=== PATIENT | male | born 1965 | race Caucasian/White ===

== ENCOUNTER 2023-11-25 16:04 | Emergency (ER) | payer MEDICAID, SELFPAY ==
[2023-11-25 16:10] VITALS: BP 206/92; PULSE 79; TEMP 36.7; O2SAT 98; BMI 33.4
[2023-11-25 16:26] VITALS: BP 194/78
--- NOTE | 2023-11-25 16:35 | CT_ITS ---
The [address] [address] Patient Name: JEFF MERRITT MRN: [id number] date: 1965 Sex: M Assigned Patient Location: ER Current Patient Location: ER Accession/Order Number: [id number] Exam Date: 11/25/2023 16:50 Report Date: 11/25/2023 18:46 At the request of: CHICA MONTAÑO Procedure: CT lumbar spine wo con EXAMINATION: CT lumbar spine wo con, , 11/25/2023 4:50 PM EDT INDICATION: Left sided sciatica HISTORY: Ordering Provider Reason for Exam: Left sided sciatica Technologist Note: Additional: COMPARISON: None. TECHNIQUE: CT of the lumbar was performed without IV contrast. CT dose reduction technique was used, including Automated Exposure Control. IV CONTRAST: FINDINGS: There is normal lumbar lordosis. No subluxation. Vertebral body heights are maintained. No fracture is seen. Mild loss of intervertebral disc height is seen at the L3-L4 level. T12-L1: No significant disc bulge or disc protrusion is seen at this level. Central canal and bilateral neural foramina are patent at this level. L1-L2: No significant disc bulge or disc protrusion is seen at this level. Central canal and bilateral neural foramina are patent at this level. L2-L3: No significant disc bulge or disc protrusion is seen at this level. Central canal and bilateral neural foramina are patent at this level. L3-L4: 4-5 mm diffuse disc bulge is noted at this level with mild central canal stenosis. Mild bilateral neural foraminal narrowing is also seen at this level. L4-L5: 4 mm posterior disc bulge is seen with mild central canal stenosis. Moderate to severe left neural foraminal narrowing is also seen at this level. L5-S1: 3-4 mm posterior disc bulge is seen at this level without significant central canal stenosis. CT/CT lumbar spine wo con IMPRESSION: Mild central canal stenosis is seen at the L3-L4 and L4-L5 levels. Moderate to severe left neural foraminal narrowing is also seen at the L4-L5 level. Electronically authenticated by: SANDRA MARCOS Date: 11/25/2023 18:46
--- NOTE | 2023-11-25 16:36 | ED.GENADUL1 ---
HPI HPI - General Adult General Chief complaint: Extremity Problem, Nontraumatic Stated complaint: LEG PAIN, SCIATICA DX LAST WEEK Time Seen by Provider: 11/25/23 16:29 Source: patient and family Mode of arrival: walk-in History of Present Illness HPI narrative: Patient is a 58-year-old male who presents to the emergency department for a 1 week history of pain in the left leg. Patient states initially he had pain in the low back but this has mostly resolved and he now feels pain in the left posterior hip, left buttock with pain radiating down the back of the leg into the calf and occasional tingling to the left foot. He denies any urine or stool incontinence. No mechanism of fall or injury. He was seen at urgent care last week and diagnosed with sciatica. He was placed on prednisone and states that the prednisone did seem to help but he was unable to go to work today and continues to have significant pain with movement and laying flat. Related Data Home Medications ?Medication ?Instructions ?Recorded ?Confirmed prednisone 20 mg tablet 20 mg PO Q24H 11/25/23 11/25/23 Previous Rx's ?Medication ?Instructions ?Recorded hydrocodone 5 mg-acetaminophen 325 1 tab PO Q6H PRN pain 3 days #12 11/25/23 mg tablet tabs ketorolac 10 mg tablet 10 mg PO TID PRN pain #10 tabs 11/25/23 methocarbamol 750 mg tablet 750 mg PO TID PRN pain #20 tabs 11/25/23 Allergies Allergy/AdvReac Type Severity Reaction Status Date / Time No Known Drug Allergies Allergy Verified 11/25/23 16:09 Opioid HPI Opioid Management Most Recent Opioid Data: Last Pain Scale 3 11/25/23 17:01 Last JUN Pain Assessment 11/25/23 17:01 Review of Systems ROS Constitutional Denies: fever or chills Ears, nose, mouth, and throat Denies: throat pain or nasal congestion Cardiovascular Denies: chest pain Respiratory Denies: shortness of breath Gastrointestinal Denies: nausea or vomiting Musculoskeletal Reports: back pain and extremity pain; Denies: neck pain, extremity swelling, joint pain or limited range of motion Integumentary/Breast Denies: rash Hematologic/Lymphatic Denies: easy bruising or easy bleeding Exam Narrative Exam Narrative: Gen.: Awake, alert, in no distress Head: Normocephalic, atraumatic ENT: Moist mucous membranes Respiratory: No respiratory distress Extremities: Moves extremities equally, normal dorsiflexion and plantarflexion to the lower extremities with no decrease in sensation to the medial thighs, normal hip flexion. Back: No bony point tenderness of the T-spine or L-spine with diffuse tenderness of the left posterior hip and buttock. No obvious deformity or step-off Psych: Normal mood and affect Neuro: No focal neuro deficit Skin: Warm, dry, intact Constitutional Vital Signs, click to edit/add: Last Vital Signs Temp 98.0 F 11/25/23 16:10 Pulse 79 11/25/23 16:10 Resp 18 11/25/23 16:10 BP 186/71 H 11/25/23 17:38 Pulse Ox 98 11/25/23 16:10 O2 Del Method Room Air 11/25/23 16:10 Course Vital Signs Vital signs: Vital Signs Temperature 98.0 F 11/25/23 16:10 Pulse Rate 79 11/25/23 16:10 Respiratory Rate 18 11/25/23 16:10 Blood Pressure 206/92 H 11/25/23 16:10 Pulse Oximetry 98 11/25/23 16:10 Oxygen Delivery Method Room Air 11/25/23 16:10 Temperature 98.0 F 11/25/23 16:10 Pulse Rate 79 11/25/23 16:10 Respiratory Rate 18 11/25/23 16:10 Blood Pressure 186/71 H 11/25/23 17:38 Pulse Oximetry 98 11/25/23 16:10 Oxygen Delivery Method Room Air 11/25/23 16:10 Medical Decision Making [facility] Narrative Medical decision making narrative: Blood pressure rechecked, still elevated, patient has no other headache, chest pain or neurodeficits. He has an appointment tomorrow with his PCP. CT of the lumbar spine shows degenerative changes and stenosis at L4/L5. Patient medicated for pain in the ER. He will be discharged home with short course of analgesics, muscle relaxants and NSAIDs. Follow-up with PCP tomorrow as scheduled for blood pressure recheck and return to the ER if symptoms change or worsen. SUPERVISED APC VISIT, PHYSICIAN ATTESTATION: Based on the medical record the care appears appropriate. ? Medical Records Medical records reviewed: Yes I reviewed the patient's medical records Imaging Data ct lumbar spine: Attestation: I have reviewed the pertinent imaging results. Radiologist's impression: ITS Impressions Lumbar Spine CT 11/25/23 16:35 IMPRESSION: Mild central canal stenosis is seen at the L3-L4 and L4-L5 levels. Moderate to severe left neural foraminal narrowing is also seen at the L4-L5 level. Electronically authenticated by: SANDRA MARCOS Date: 11/25/2023 18:46 Discharge Plan Discharge Stand Alone Forms: Portal Instructions Chief Complaint: Extremity Problem, Nontraumatic Clinical Impression: Left sided sciatica, Acute lumbar radiculopathy Patient Disposition: Home, Self-Care Time of Disposition Decision: 18:55 Condition: Good Prescriptions / Home Meds: New hydrocodone-acetaminophen 5-325 mg tablet 1 tab PO Q6H PRN (Reason: pain) 3 Days Qty: 12 0RF Rx Instructions: DX: M54.5 ketorolac 10 mg tablet 10 mg PO TID PRN (Reason: pain) Qty: 10 0RF methocarbamol 750 mg tablet 750 mg PO TID PRN (Reason: pain) Qty: 20 0RF No Action prednisone 20 mg tablet 20 mg PO Q24H Print Language: Turkmen Instructions: Sciatica (ED), Lumbar Radiculopathy (ED) Referrals: Jena Harris NP [Nurse Practitioner] - 1 week
[2023-11-25] MEDS: OXYCODONE HCL/ACETAMINOPHEN 5MG/325MG 1 TAB PO (17:01)
[2023-11-25] MEDS: METHOCARBAMOL 500 MG TABLET 1000 MG PO (17:01)
[2023-11-25] MEDS: KETOROLAC TROMETHAMINE 60 MG/2 ML VIAL IM (17:01)
[2023-11-25 17:38] VITALS: BP 186/71
[2023-11-25 19:04] VITALS: BP 170/84; PULSE 87; O2SAT 97
== END 2023-11-25 19:04 | disposition home or self-care (01) ==
PROVIDERS: Emergency Provider Student in an Organized Health Care Education/Training Program; PCP Family Medicine
DX: M54.16 Radiculopathy, lumbar region (principal); M54.32 Sciatica, left side
CPT/HCPCS: 72131; 96372; 99285; J1885

== ENCOUNTER 2023-12-03 14:40 | Outpatient (OUT) | payer MEDICAID, SELFPAY ==
--- OUTSIDE RECORDS SUMMARY | 2023-12-03 14:54 | XMS_ITS | CCD ---
Author Organization [facility] Inform ion Partnership [facility] Care Team Providers Care Power Wheelchair Mechanic Name Role Phone SHEILA PEREZ Admitting Unavailable SHEILA PEREZ Attending Unavailable TYRESE HARRIS Primary Care Unavailable RINA SHETTY Consulting Unavailable SHEILA PEREZ Consulting Unavailable TYRESE HARRIS Admitting Unavailable AICHHOLZTYRESE JENA Attending Unavailable AICHHOLZ, ASSOCIATE PROFESSOR OF EDUCATION JENA Consulting Unavailable AICHHOLZ, JENA Attending Unavailable AICHHOLZ, JENA Attending Unavailable Medications Current Medications Medication Drug Class(es) Dates Sig (Normalized) Sig (Original) predniSONE 20 mg oral tablet (1 source) Start: 11-21-2023 take 2 tablets by mouth once daily Prednisone Active 20 MG PO .COMPLEX November 21, 2023 12:00am Take 2 tabs po daily x 5 days Problems Active Problems Problem Classification Problem Date Documented Da te Episodic/Chronic Gout and other crystal arthropathies (1 source) Gout; Translations: [Gout, unspecified] 11-21-2023 Chronic Other congenital anomalies (1 source) Congenital malformation of knee; Translations: [CONGENITAL MALFORMATION OF KNEE] Onset: 10-04-2021 Chronic Other non-traumatic joint disorders (3 sources) Pain in left knee; Translations: [PAIN IN LEFT KNEE] Onset: 10-01-2021 Episodic Other non-traumatic joint disorders (1 source) Effusion, left knee; Translations: [EFFUSION LEFT KNEE] Onset: 10-04-2021 Episodic Spondylosis; intervertebral disc disorders; other back problems (1 source) Sciatica, left side; Translations: [Sciatica] 11-21-2023 Episodic Substance-related disorders (1 source) Nicotine dependence, cigarettes, uncomplicated; Translations: [NICOTINE DEPEND CIGARETTES UNCOMP] Onset: 10-04-2021 Chronic Unclassified (2 sources) CONTACT W/AND (SUSP) EXPOS COVID-19; Translations: [CONTACT W/AND (SUSP) EXPOS COVID-19] Onset: 04-06-2021 Viral infection (1 source) COVID-19; Translations: [COVID-19] Onset: 04-06-2021 Past or Other Problems Problem Classification Problem Date Documented Da te Episodic/Chronic Unclassified (1 source) CONTACT W/AND (SUSP) EXPOS COVID-19; Translations: [CONTACT W/AND (SUSP) EXPOS COVID-19] Onset: 03-31-2021 Results Test Name Value Interpretation Reference Range Facil ity XR KNEE LT 4V or >on 022 XR KNEE LT 4V or > IMAGES REVIEWED: XR KNEE LT 4V or > COMPARISON: None available. CLINICAL INDICATION: Pain and swelling. FINDINGS/IMPRESSION: 1. 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 No priors available for comparison. Reported prior history of left patellar fracture, exact dates not given. Comminuted displaced chronic nonunited patella fracture is less likely. 2. Nonspecific suprapatellar effusion. Could suggest internal derangement. No lipohemarthrosis. 3. Consider further evaluation with advanced imaging as clinically appropriate. Electronically authenticated by: RINA SHETTY Date: 2021-10-01 18:24 Normal [facility]22 SARS-CoV-2 (COVID-19) RNA MAJO+probe Ql (Unsp spec) Detected Critically abnormal NOT DETECTED [facility] Comment on above: Result Comment: This test is not yet oliver roved or cleared by the [place] FDA. When there are no FDA-approved or cleared tests available, and other criteria are met, FDA can make tests available under an emergency access mechanism called an Emergency Use Authorization (EUA). The EUA for this test is supported by the [place] of Health and Human Service's (HHS's) declaration that circumstances exist to justify the emergency use of in vitro diagnostics for the detection and/or diagnosis of the virus that causes COVID-19. This EUA will remain in effect (meaning this test can be used) for the duration of the COVID-19 declaration justifying emergency of IVDs, unless it is terminated or revoked by FDA (after which the test may no longer be used). Performed By: #### C VDTBH #### [facility] [address] [address] [address] Hannah Mauricio Vital Signs Date Time Vital Sign Value Performing Clinician Bertha montgomery 11-21-2023 15:57-0400 Body height 177.8 cm [facility] 11-21-2023 15:57-0400 Body mass index (BMI) [Ratio] 33 kg/m2 [facility] 11-21-2023 15:57-0400 Body temperature 99.5 [degF] [facility] 11-21-2023 15:57-0400 Body weight 104.32 kg [facility] 11-21-2023 15:57-0400 Diastolic blood pressure 80 mm[Hg] [facility] 11-21-2023 15:57-0400 Heart rate 69 /min [facility] 11-21-2023 15:57-0400 Respiratory rate 18 /min [facility] 11-21-2023 15:57-0400 SaO2% (BldA) [Mass fraction] 99 % [facility] 11-21-2023 15:57-0400 Systolic blood pressure 182 mm[Hg] [facility] Encounters Encounter Date Encounter Type Care Provider Facility Start: 12-02-2023 End: 12-02-2023 ambulatory JENA AICHHOLZ Not Available Start: 11-26-2023 End: 11-26-2023 ambulatory JENA AICHHOLZ Not Available Start: 11-21-2023 End: 11-21-2023 ambulatory [facility] Work Phone: Start: 11-21-2023 End: 11-21-2023 Patient encounter procedure [facility] Work Phone: Start: 10-01-2021 End: 10-01-2021 ambulatory SHEILA CHRIS Facility:[facility] Start: 03-31-2021 End: 03-31-2021 ambulatory ASSOCIATE PROFESSOR OF EDUCATION JENA AICHHOLZ Facility: Payers Date Payer Category Payer Medicaid [id number] 97 [id number] 1965 Unknown [id number] [id number] 1965 Unknown [id number] [id number] [id number] 1965 Unknown [id number] [id number] [id number] 1965 Unknown [id number] [id number] [id number] 1958 Unknown [id number] Social History Date Type Detail Facility Start: 11-21-2023 Tobacco smoking stat [facility] Smoker (finding) [facility] Start: 1965 Sex Assigned At Male F [facility] Evaluation note Note Date & Type Note Facility Evaluation note Diagnosis Onset Date Left sided sciatica noneacti ve [facility] Work Phone: Summary Purpose Family History No Family History Records Found Relationship Condition Age at Onset Recorded Date/T pedro father Heart disease Unknown Hypertension Unknown mother Heart disease Unknown Cerebrovascular accident (CVA) Unknown Advance Directives No Advanced Directives Records Found Advance Directive Response Recorded Date/ Time Advance Directives No November 20 3:47pm Chief Complaint and Reason for Visit Chief Complaint Left hip pain Reason for Visit Left sided sciatica Additional Source Comments (unrecognized sect ion and content) No Status Records FoundNo Status Records Found INFORMATION SOURCE (unrecogn ized section and content) DATE CREATED AUTHOR 10/04/2021 [facility] DATE CREATED AUTHOR AUTHOR'S ORGANIZ ATION 12/03/2023 [facility] EPIC Care Teams (unrecognized sec tion and content) Team Status: Active Member Role Status Dates Jena Harris Primary Care Provider Active Team Status: Inactive Member Role Status Dates Chantale Neal APRN Attending Provider Active Start: November 21, 2023 End: November 21, 2023 Jena Harris Primary Care Provider Active Sta rt: November 21, 2023 End: November 21, 2023 Goals (unrecognized section and content) Goals may be documented in a n alternate section FOR RECORDS PERTAINING TO PATIENTS WHO ARE OR HAVE BEEN ENROLLED IN A CHEMICAL DEPENDENCY/SUBSTANCEABUSE PROGRAM, SOME INFORMATION MAY BE OMITTED. This clinical summary was aggregated from multiple sources. Caution should be exercised in using it in the provision of clinical care. This summary normalizes information from multiple sources, and as a consequence, information in this document may materially change the coding, format and clinical context of patient data. In addition, data may be omitted in some cases. CLINICAL DECISIONS SHOULD BE BASED ON THE PRIMARY CLINICAL RECORDS. [facility], [facility]. provides no warranty or guarantee of the accuracy or completeness of information in this document.
[2023-12-03 15:02] LABS: Basophils Percent Auto 0.2 % (0.2-2.0); Eosinophils Percent Auto 0.2 % (0.9-7.0); Hematocrit 43.1 % (42.0-54.0); Hemoglobin 14.7 g/dL (14.0-18.0); Immature Granulocytes Abs Auto 0.08 10^3/uL (0.00-0.03); Immature Granulocytes Pct Auto 0.4 % (0.0-0.5); Lymphocytes Absolute Auto 3.1 10^3/uL (1.2-3.8); Lymphocytes Percent Auto 14.8 % (20.5-60.0); Mean Corpuscular HGB Conc 34.1 g/dL (29.9-35.2); Mean Corpuscular Hemoglobin 31.9 pg (25.9-34.0); Mean Corpuscular Volume 93.5 fL (80.0-94.0); Mean Platelet Volume 9.9 fL (9.5-13.5); Monocytes Percent Auto 4.8 % (1.7-12.0); Neutrophils Absolute Auto 16.6 10^3/uL (1.4-6.5); Neutrophils Percent Auto 79.6 % (43.0-75.0); Platelet Count 283 10^3/uL (150-450); Red Blood Count 4.61 10^6/uL (4.70-6.10); Red Cell Distribution Width 13.1 % (11.0-15.0); White Blood Count 20.9 10^3/uL (4.0-11.0)
[2023-12-03 15:03] LABS: Bilirubin Urine NEGATIVE (NEGATIVE); Blood Urine NEGATIVE (NEGATIVE); Clarity Urine CLEAR (CLEAR); Color Urine YELLOW (YELLOW); Glucose Urine UA 250 mg/dL (NEGATIVE); Ketones Urine NEGATIVE (NEGATIVE); Leukocyte Esterase Urine NEGATIVE (NEGATIVE); Nitrite Urine NEGATIVE (NEGATIVE); Protein Urine NEGATIVE (NEG/TRACE); Specific Gravity Urine >=1.030 (1.005-1.025); Urobilinogen Urine 0.2 EU/dL (0.2-1.0)
[2023-12-03 15:11] LABS: Urine Microscopic Indicated NO
[2023-12-03 15:26] LABS: Creatinine Urine Random 209.92 mg/dL (20.00-300.00)
[2023-12-03 15:29] LABS: Alanine Aminotransferase 31 U/L (16-63); Albumin Globulin Ratio 0.9; Albumin Level 3.6 g/dL (3.4-5.0); Alkaline Phosphatase 99 U/L (46-116); Anion Gap 12.1; Aspartate Amino Transferase 12 U/L (15-37); BUN Creatinine Ratio 15.9; Bilirubin Total 0.4 mg/dL (0.2-1.0); Calcium 9.4 mg/dL (8.5-10.1); Carbon Dioxide 27.7 mmol/L (21.0-32.0); Chloride 102 mmol/L (98-107); Chol HDL Ratio 6.3; Cholesterol 273 mg/dL (<=200); Estimated GFR (African America >60 (>=60); Estimated GFR (Non-African Ame >60 (>=60); Globulin 3.9 g/dL; Glucose 97 mg/dL (74-106); HDL Cholesterol 43 mg/dL (40-60); Potassium 3.8 mmol/L (3.5-5.1); Sodium 138 mmol/L (136-145); Total Protein 7.5 g/dL (6.4-8.2); Triglycerides 132 mg/dL (<=150); Uric Acid 7.2 mg/dL (3.5-7.2); VLDL CHOLESTEROL 26.4 mg/dL
[2023-12-03 16:13] LABS: Microalbumin Urine Random <1.3 mg/dL (<=30.0)
[2023-12-03 16:47] LABS: Prostate Specific Antigen Scrn 0.27 ng/mL (<=4.00)
== END 2023-12-03 14:41 | disposition home or self-care (01) ==
LOC: LAB 14:42
PROVIDERS: PCP Nurse Practitioner; Visit Provider Nurse Practitioner
DX: M1A.09X0 Idiopathic chronic gout, multiple sites, without tophus (tophi) (principal); Z12.5 Encounter for screening for malignant neoplasm of prostate; F17.200 Nicotine dependence, unspecified, uncomplicated; I10 Essential (primary) hypertension; E66.9 Obesity, unspecified
CPT/HCPCS: 36415; 80053; 80061; 81003; 82043; 82570; 84550; 85025; G0103

== ENCOUNTER 2023-12-09 14:31 | Outpatient (OUT) | payer MEDICAID, SELFPAY ==
--- OUTSIDE RECORDS SUMMARY | 2023-12-09 14:47 | XMS_ITS | CCD ---
Author Organization [facility] Inform ion Partnership [facility] Care Team Providers Care Power Systems Engineer Name Role Phone SHEILA PEREZ Admitting Unavailable SHEILA PEREZ Attending Unavailable TYRESE HARRIS Primary Care Unavailable RINA SHETTY Consulting Unavailable SHEILA PEREZ Consulting Unavailable TYRESE HARRIS Admitting Unavailable AICHHOLZTYRESE JENA Attending Unavailable AICHHOLZ, EP TECHNOLOGIST JENA Consulting Unavailable AICHHOLZ, JENA Attending Unavailable [...] RINA SHETTY Date: 2021-10-01 18:[address] [facility]on [facility]-22 SARS-CoV-2 (COVID-19) RNA MAJO+probe Ql (Unsp spec) Detected Critically abnormal NOT DETECTED [facility] Comment on above: Result Comment: This test is not yet oliver roved or cleared by the [place] FDA. When there are no FDA-approved or cleared tests available, and other criteria are met, FDA can make tests available under an emergency access mechanism called an Emergency Use Authorization (EUA). The EUA for this test is supported by the [place] of Health and Human Service's (HHS's) declaration [...] used). Performed By: #### C VDTBH #### [facility] [address] [address] [address] Hannah Mauricio Vital Signs Date Time Vital Sign Value Performing Clinician Bertha montgomery 11-21-2023 15:57-0400 Body height 177.8 cm [facility] 11-21-2023 15:57-0400 Body mass index (BMI) [Ratio] 33 kg/m2 [facility] 11-21-2023 15:57-0400 Body temperature 99.5 [degF] [facility] 11-21-2023 15:57-0400 Body weight 104.32 kg [facility] 11-21-2023 15:57-0400 Diastolic blood pressure 80 mm[Hg] [facility] 11-21-2023 15:57-0400 Heart rate 69 /min [facility] 11-21-2023 15:57-0400 Respiratory rate 18 /min [facility] 11-21-2023 15:57-0400 SaO2% (BldA) [Mass fraction] 99 % [facility] 11-21-2023 15:57-0400 Systolic blood pressure 182 mm[Hg] [facility] Encounters Encounter Date Encounter Type Care Provider Facility Start: 12-02-2023 End: 12-02-2023 ambulatory JENA AICHHOLZ Not Available Start: 11-26-2023 End: 11-26-2023 ambulatory JENA AICHHOLZ Not Available Start: 11-21-2023 End: 11-21-2023 ambulatory [facility] Work Phone: Start: 11-21-2023 End: 11-21-2023 Patient encounter procedure [facility] Work Phone: Start: 10-01-2021 End: 10-01-2021 ambulatory SHEILA CHRIS Facility:[facility] Start: 03-31-2021 End: 03-31-2021 ambulatory EP TECHNOLOGIST JENA AICHHOLZ Facility: Payers Date Payer Category Payer Medicaid [id number] 97 [id number] 1965 Unknown [id number] 2.16.84 [id number] 1965 Unknown [id number] 2.16.84 [id number] 1965 Unknown [id number] 2.16.84 [id number] 1965 Unknown [id number] 2.16.84 [id number] 1959 Unknown [id number] Social History Date Type Detail Facility Start: 11-21-2023 Tobacco smoking stat [facility] Smoker (finding) [facility] Start: 1965 Sex Assigned At Male F [facility] Evaluation note Note Date & Type Note Facility Evaluation note Diagnosis Onset Date Left sided sciatica noneacti ve [facility] Work Phone: Summary Purpose Family History No [...] DATE CREATED AUTHOR AUTHOR'S ORGANIZ ATION 12/03/2023 [facility] EP[employer] Care Teams (unrecognized sec tion and content) Team Status: Active Member Role Status Dates Jena Harris Primary Care Provider Active Team Status: Inactive Member Role Status Dates Chantale Nela APRN Attending Provider Active Start: November 21, [...] BE BASED ON THE PRIMARY CLINICAL RECORDS. [facility], [facility]. provides no warranty or guarantee of the accuracy or completeness of information in this document.
--- NOTE | 2023-12-09 15:38 | P.CN_ITS ---
Consult Note: HPI Data of Consult Patient: new to practice Consult date: 12/09/23 Requesting Physician: Alesia Deluna MD Primary Care Provider: JONES GILLIAM Consult Narrative Reason for consult: low back, left leg pain Narrative: 58yom who presents for evaluation. worsening low back, left leg pain. imaging r eviewed, which is significant for multiple levels of disc bulging in lumbar spine, with stenosis at l3-4, l4-5, l5-s1. has continued in a series of provider directed home exercises >6 weeks, without significant benefit. has tried medrol dosepack, with some benefit, as well as percocet and robaxin. denies adverse med side effects. cc:: CC: Alesia Deluna MD Review of Systems ROS Status of ROS 10 or more systems reviewed and unremark able except as noted in history and below [facility] Medical History (Updated 12/09/23 @ 15:45 by Alesia Deluna MD) High cholesterol ?E78.00 - Pure hypercholesterolemia, unspecified (ICD-10) HTN (hypertension) ?I10 - Essential (primary) hypertension (ICD-10) Meds Home Medications and Allergies Home Medications ?Medication ?Instructions ?Recorded ?Confirmed ?Type methocarbamol 750 mg tablet 750 mg PO TID PRN pain #20 tabs 11/25/23 Rx oxycodone-acetaminophen 5 mg-325 1 tab PO Q6H PRN pain #12 tabs 11/25/23 Rx mg tablet (Percocet) prednisone 20 mg tablet 20 mg PO Q24H 11/25/23 11/25/23 History atorvastatin 20 mg tablet 20 mg PO DAILY 12/09/23 12/09/23 History Allergies Allergy/AdvReac Type Severity Reaction Status Date / Time No Known Drug Allergies Allergy Verified 11/25/23 16:09 Exam Narrative Exam Narrative: Psych-alert and oriented x 3. Attentive and appropriate, constitutionally normal, displays normal mood and affect per situation. There are no obvious deficits in memory, reasoning, or intellect.? Skin-no obvious rashes, bruising, erythema noted to the patient's area of pain.? Extremities- extremities are warm with minimal edema and palpable pulses. Lumbar-tenderness to palpation noted in the lumbar spine and paraspinal musculature. Pain is elicited with flexion, extension, and lateral rotation of the lumbar spine. Range of motion is diminished with these motions. Facet loading maneuvers are positive.? Strength-noted to be unremarkable with the exception of decreased strength rated at 4 out of 5 in left quadriceps femoris, anterior tibialis. Sensory-no notable sensory deficits in the bilateral lower extremities to touch or pinprick in all dermatomal distributions with the exception to decreased sensation to the left L3, 4, 5 dermatomal distribution Coordination remains intact.? Gait remains non-antalgic. Assessment and Plan Assessment and Plan (1) Lumbar stenosis with neurogenic claudication: (2) Lumbar disc displacement without myelopathy: Plan 58yom who presents for evaluation. failed conservative measures, as noted. imaging reviewed, as noted. given symptoms and imaging, prudent to attempt left l3-4, l4-5 tfesi x2 under fluoroscopic guidance. he is in agreement. meds reviewed, no changes. follow up after procedure.
== END 2023-12-09 14:32 | disposition home or self-care (01) ==
LOC: PM 14:31
PROVIDERS: PCP Family Medicine; Visit Provider Anesthesiology
DX: M48.062 Spinal stenosis, lumbar region with neurogenic claudication (principal); M51.26 Other intervertebral disc displacement, lumbar region
CPT/HCPCS: G0463

== ENCOUNTER 2023-12-30 10:27 | Day surgery (SDC) | payer MEDICAID, SELFPAY ==
[2023-12-30 10:44] VITALS: BP 159/82; PULSE 75; TEMP 37.5; O2SAT 97
[2023-12-30 11:18] VITALS: BP 170/83; BP 180/87; PULSE 83; PULSE 84; O2SAT 95
--- NOTE | 2023-12-30 11:21 | P.ON_ITS ---
Date of procedure: 12/30/23 Pre-op diagnosis: Pain due to lumbar stenosis with neurogenic claudication Post-op diagnosis: same as pre-op Procedure: Procedure: Left L3-4, L4-5 transforaminal epidural steroid injection Medications: Bupivacaine 0.25% 2cc, lidocaine 2% 1cc, dexamethasone 10mg The patient was seen and examined in the preoperative holding area.? Informed consent was obtained and placed on the chart.? Patient was brought to the medical procedure unit and placed in the prone position where a timeout was completed verifying the correct patient, procedure site, position, and planned special equipment using sterile aseptic technique.? Under direct fluoroscopic visualization a 25-gauge Quincke tipped spinal needle was advanced to the designated neural foramen where contrast dye was injected to show adequate spread.? The needle was inserted at level left L3-4. There was no evidence of vascular or adverse uptake.? Epidural spread was appreciated.? The above- mentioned injectate was then placed in a 1.5 mL aliquot preceded by negative aspiration.? The needle was removed. The needle was inserted and the procedure repeated at level left L4-5.? The surgery site was covered.? Patient was taken to the postprocedural recovery area and monitored for an appropriate length of time before found suitable for discharge in the accompaniment of a responsible adult. Anesthesia: Local Surgeon: Alesia Deluna Pathology: none sent Condition: stable Disposition: no change
[2023-12-30] MEDS: 0.9 % SODIUM CHLORIDE 10 ML SYRINGE - SALINE FLUSH INJ (11:22)
[2023-12-30] MEDS: BUPIVACAINE HCL 0.25% PF 25 MG/10 ML VIAL INJ (11:22)
[2023-12-30] MEDS: LIDOCAINE HCL 2% 400 MG/20 ML MDV 2.5 ML INJ (11:23)
[2023-12-30] MEDS: IOHEXOL 240 MG/ML - 10 ML VIAL 12 MG INJ (11:23)
[2023-12-30] MEDS: DEXAMETHASONE SOD PHOS 10 MG/ML VIAL INJ (11:23)
== END 2023-12-30 11:26 | disposition home or self-care (01) ==
LOC: SURGOUT 10:28
PROVIDERS: PCP Nurse Practitioner; Visit Provider Anesthesiology
DX: M48.062 Spinal stenosis, lumbar region with neurogenic claudication (principal)
CPT/HCPCS: 64483; 64484; J0665; J1100; Q9966

== ENCOUNTER 2024-01-15 10:59 | Outpatient (OUT) | payer MEDICAID, SELFPAY ==
--- NOTE | 2024-01-15 11:15 | P.CN_ITS ---
Consult Note: HPI Data of Consult Patient: new to practice Consult date: 12/09/23 Requesting Physician: Mary Hoover NP Primary Care Provider: Jena Harris NP Consult Narrative Reason for consult: low back, left leg pain Narrative: 58yom who presents for evaluation. worsening low back, left leg pain. imaging reviewed, which is significant for multiple levels of disc bulging in lumbar spine, with stenosis at l3-4, l4-5, l5-s1. has continued in a series of provider directed home exercises >6 weeks, without significant benefit. has tried medrol dosepack, with some benefit, as well as percocet and robaxin. denies adverse med side effects. recently underwent left L3-4 L4-5 TFESI with 95% improvement ongoing cc:: CC: Mary Hoover NP Review of Systems ROS Status of ROS 10 or more systems reviewed and unremark able except as noted in history and below Musculoskeletal Reports: extremity pain PFSH [facility] Medical History (Updated 12/17/23 @ 14:50 by Ileana Lopez) Low back pain ?M54.50 - Low back pain, unspecified (ICD-10) Smoker ?F17.200 - Nicotine dependence, unspecified, uncomplicated (ICD-10) High cholesterol ?E78.00 - Pure hypercholesterolemia, unspecified (ICD-10) HTN (hypertension) ?I10 - Essential (primary) hypertension (ICD-10) Meds Home Medications and Allergies Home Medications ?Medication ?Instructions ?Recorded ?Confirmed ?Type methocarbamol 750 mg tablet 750 mg PO TID PRN pain #20 tabs 11/25/23 12/30/23 Rx oxycodone-acetaminophen 5 mg-325 1 tab PO Q6H PRN pain #12 tabs 11/25/23 12/30/23 Rx mg tablet (Percocet) atorvastatin 20 mg tablet 20 mg PO DAILY 12/09/23 12/30/23 History amlodipine 10 mg tablet mg 12/30/23 History Allergies Allergy/AdvReac Type Severity Reaction Status Date / Time No Known Drug Allergies Allergy Verified 12/30/23 10:42 Exam Narrative Exam Narrative: Psych-alert and oriented x 3. Attentive and appropriate, constitutionally normal, displays normal mood and affect per situation. There are no obvious deficits in memory, reasoning, or intellect.? Skin-no obvious rashes, bruising, erythema noted to the patient's area of pain.? Extremities- extremities are warm with minimal edema and palpable pulses. Lumbar-tenderness to palpation noted in the lumbar spine and paraspinal musculature. Pain is elicited with flexion, extension, and lateral rotation of the lumbar spine. Range of motion is diminished with these motions. Facet loading maneuvers are positive.? Strength-noted to be unremarkable Sensory-no notable sensory deficits in the bilateral lower extremities to touch or pinprick in all dermatomal distributions Coordination remains intact.? Gait remains non-antalgic. Assessment and Plan Assessment and Plan (1) Lumbar disc displacement without myelopathy: (2) Lumbar stenosis with neurogenic claudication: (3) Left sided sciatica: Plan >80% improvement ongoing from left L3-4 L4-5 TFESI, continue HEP as tolerated continue current medications f/u 3 months, sooner if needed
== END 2024-01-15 11:00 | disposition home or self-care (01) ==
LOC: PM 10:59
PROVIDERS: PCP Nurse Practitioner; Visit Provider Nurse Practitioner
DX: M51.26 Other intervertebral disc displacement, lumbar region (principal); M48.062 Spinal stenosis, lumbar region with neurogenic claudication; M54.32 Sciatica, left side
CPT/HCPCS: G0463

== ENCOUNTER 2024-04-08 10:52 | Outpatient (OUT) | payer MEDICAID, SELFPAY ==
--- OUTSIDE RECORDS SUMMARY | 2024-04-08 10:57 | XMS_ITS | CCD ---
Author Organization [facility] Care Team Providers Care Shrimp Cleaner Name Role Phone SHEILA PEREZ Admitting Unavailable SHEILA PEREZ Attending Unavailable AICHHOLAundrea, TYRESE AMBROCIO Primary Care Unavailable RINA SHETTY Consulting Unavailable SHEILA PEREZ Consulting Unavailable AICHHOLZ, TYRESE JENA Admitting Unavailable AICHHOLZ, NOZZLE OPERATOR JENA Attending Unavailable AICHHOLZ, NOZZLE OPERATOR JENA Consulting Unavailable AICHHOLZ, JENA Attending Unavailable AICHHOLZ, JENA Attending Unavailable AICHHOLZ, JENA Attending Unavailable Regi GIRON, Alesia Joseph Attending Unavailable Regi GIRON, Alesia Joseph Attending Unavailable Clarence Bernarod MD Primary Care Provider Aichholz CARDIOVASCULAR TECHNICIAN, Jena Unavailable Medications Current Medications Medication Drug Class(es) Dates Sig (Normalized) Sig (Original) [id number] 200 actuat albuterol 0.09 mg/actuat metered dose inhaler (6 sources) beta2-Adrenergic Agonist Start: 01-23-2024 End: 03-25-2024 take 2 puff(s) by inhalation every six hours for wheezing albuterol HFA 90 mcg/act inhaler Indications: COVID-19 virus detected Inhale 2 puffs every 6 (six) hours if needed for wheezing or shortness of breath 18 g 02/24/2024 03/25/2024 Active amLODIPine 10 mg oral tablet (11 sources) Dihydropyridine Calcium Channel Johanna Start: 12-28-2023 End: 04-23-2024 take 1 tablet by mouth once daily amLODIPine (Norvasc) 10 MG tablet Indications: Primary hypertension (CMS/HCC) Take 1 tablet (10 mg) by mouth Daily 30 tablet 1 03/24/2024 04/23/2024 Active atorvastatin 20 mg oral tablet (10 sources) HMG-CoA Reductase Inhibitor Start: 12-30-2023 End: 03-31-2024 take 1 tablet by mouth at bedtime atorvastatin (Lipitor) 20 MG tablet Indications: Mixed hyperlipidemia (CMS/HCC) Take 1 tablet (20 mg) by mouth at bedtime 90 tablet 01/01/2024 03/31/2024 Active losartan potassium 25 mg oral tablet (11 sources) Angiotensin 2 Receptor Johanna Start: 12-31-2023 End: 04-26-2024 take 1 tablet by mouth once daily losartan (Cozaar) 25 MG tablet Indications: Primary hypertension (CMS/HCC) Take 1 tablet (25 mg) by mouth Daily 90 tablet 01/27/2024 04/26/2024 Active predniSONE 20 mg oral tablet (4 sources) Start: 01-23-2024 End: 01-28-2024 take 1 tablet by mouth in the morning predniSONE (Deltasone) 20 MG tablet Indications: COVID-19 virus detected Take 1 tablet (20 mg) by mouth in the morning and 1 tablet (20 mg) before bedtime. Do all this for 5 days. Take with food. 10 tablet 01/23/2024 01/28/2024 Active Start: 11-21-2023 End: 01-17-2024 take 2 tablets by mouth once daily Prednisone Discontinued 20 MG PO .COMPLEX 10 November 21, 2023 12:00am January 17, 2024 1:33pm Take 2 tabs po daily x 5 days Problems Active Problems Problem Classification Problem Date Documented Da te Episodic/Chronic Disorders of lipid metabolism (9 sources) Mixed hyperlipidemia; Translations: [Mixed hyperlipidemia] Onset: 12-04-2023 12-04-2023 Chronic Essential hypertension (12 sources) Essential hypertension; Translations: [Essential (primary) hypertension] Onset: 11-26-2023 01-22-2024 Chronic Gout and other crystal arthropathies (10 sources) Gout; Translations: [Gout, unspecified] Onset: 11-26-2023 11-21-2023 Chronic Immunizations and screening for infectious disease (1 source) Contact with or exposure to other viral diseases; Translations: [Exposure to 2019 novel coronavirus] 01-17-2024 Episodic Other congenital anomalies (1 source) Congenital malformation of knee; Translations: [CONGENITAL MALFORMATION OF KNEE] Onset: 10-04-2021 Chronic Other male genital disorders (8 sources) Male erectile dysfunction, unspecified; Translations: [Impotence of organic origin] Onset: 11-26-2023 11-26-2023 Chronic Other non-traumatic joint disorders (3 sources) Pain in left knee; Translations: [PAIN IN LEFT KNEE] Onset: 10-01-2021 Episodic Other non-traumatic joint disorders (1 source) Effusion, left knee; Translations: [EFFUSION LEFT KNEE] Onset: 10-04-2021 Episodic Other nutritional; endocrine; and metabolic disorders (8 sources) Obese class I; Translations: [Obesity (BMI 30.0-34.9)] Onset: 12-02-2023 12-02-2023 Chronic Other upper respiratory disease (1 source) Nasal congestion; Translations: [Other disease of nasal cavity and sinuses] 01-17-2024 Episodic Substance-related disorders (9 sources) Nicotine dependence, cigarettes, uncomplicated; Translations: [Tobacco dependence syndrome] Onset: 10-04-2021 11-26-2023 Chronic Unclassified (2 sources) CONTACT W/AND (SUSP) EXPOS COVID-19; Translations: [CONTACT W/AND (SUSP) EXPOS COVID-19] Onset: 04-06-2021 Viral infection (12 sources) Disease caused by 2019-nCoV; Translations: [COVID-19] Onset: 01-23-2024 Resolved: 01-30-2024 01-17-2024 Episodic Viral infection (1 source) COVID-19; Translations: [COVID-19] Onset: 04-06-2021 Past or Other Problems Problem Classification Problem Date Documented Da te Episodic/Chronic Other screening for suspected conditions (not mental disorders or infectious disease) (20 sources) Patient encounter status; Translations: [Encounter for screening for malignant neoplasm of prostate] Onset: 12-02-2023 12-02-2023 Episodic Spondylosis; intervertebral disc disorders; other back problems (20 sources) Sciatica, left side; Translations: [Sciatica] Onset: 11-26-2023 11-21-2023 Episodic Unclassified (1 source) CONTACT W/AND (SUSP) EXPOS [...] RINA SHETTY Date: 2021-10-01 18:24 Normal [facility] Covid-19 PCR ([facility])on 03-22 SARS-CoV-2 (COVID-19) RNA MAJO+probe Ql (Unsp spec) Detected Critically abnormal NOT DETECTED [facility] Comment on above: Result Comment: This test is not yet oliver roved or cleared by the [place] FDA. When there are no FDA-approved or cleared tests available, and other criteria are met, FDA can make tests available under an emergency access mechanism called an Emergency Use Authorization (EUA). The EUA for this test is supported by the [place] of Health and Human Service's (HHS's) declaration [...] longer be used). Performed By: #### [facility] #### [facility] [address] [address] [address] Hannah Mauricio Vital Signs Date Time Vital Sign Value Performing Clinician Faci lity 01-17-2024 13:30-0400 Body height 177.8 cm [facility] 01-17-2024 13:30-0400 Body mass index (BMI) [Ratio] 33.1 kg/m2 [facility] 01-17-2024 13:30-0400 Body temperature 99 [degF] [facility] 01-17-2024 13:30-0400 Body weight 104.83 kg [facility] 01-17-2024 13:30-0400 Diastolic blood pressure 71 mm[Hg] [facility] 01-17-2024 13:30-0400 Heart rate 77 /min [facility] 01-17-2024 13:30-0400 Respiratory rate 18 /min [facility] 01-17-2024 13:30-0400 SaO2% (BldA) [Mass fraction] 97 % [facility] 01-17-2024 13:30-0400 Systolic blood pressure 148 mm[Hg] [facility] 11-21-2023 15:57-0400 Body height 177.8 cm [facility] 11-21-2023 15:57-0400 Body mass index (BMI) [Ratio] 33 kg/m2 [facility] 11-21-2023 15:57-0400 Body temperature 99.5 [degF] [facility] 11-21-2023 15:57-0400 Body weight 104.32 kg [facility] 11-21-2023 15:57-0400 Diastolic blood pressure 80 mm[Hg] [facility] 11-21-2023 15:57-0400 Heart rate 69 /min [facility] 11-21-2023 15:57-0400 Respiratory rate 18 /min [facility] 11-21-2023 15:57-0400 SaO2% (BldA) [Mass fraction] 99 % [facility] 11-21-2023 15:57-0400 Systolic blood pressure 182 mm[Hg] [facility] Encounters Encounter Date Encounter Type Care Provider Facility Start: 03-24-2024 End: 03-24-2024 Refill Jena Harris CARDIOVASCULAR TECHNICIAN Work Phone: [facility] Comment on above: Primary hypertension (CMS/HCC) Start: 03-21-2024 End: 03-21-2024 Refill Jena Harris CARDIOVASCULAR TECHNICIAN Work Phone: [facility] Comment on above: COVID-19 virus detec ida Start: 02-23-2024 End: 02-24-2024 Refill Jena Aichholz CARDIOVASCULAR TECHNICIAN Work Phone: [facility] Comment on above: COVID-19 virus detec ida Start: 01-27-2024 End: 01-27-2024 Refill Jena Aichholz CARDIOVASCULAR TECHNICIAN Work Phone: [facility] Comment on above: Primary hypertension (CMS/HCC) Start: 01-23-2024 End: 01-23-2024 Refill Jena Aichholz CARDIOVASCULAR TECHNICIAN Work Phone: [facility] Comment on above: COVID-19 virus detec ida (Primary Dx) Start: 01-22-2024 End: 01-22-2024 Refill Jena Aichholz CARDIOVASCULAR TECHNICIAN Work Phone: [facility] Comment on above: Primary hypertension (CMS/HCC) Start: 01-17-2024 End: 01-17-2024 ambulatory [facility] Work Phone: Start: 01-17-2024 End: 01-17-2024 Patient encounter procedure [facility] Work Phone: Start: 01-01-2024 End: 01-01-2024 Refill Jena Aichholz CARDIOVASCULAR TECHNICIAN Work Phone: [facility] Comment on above: Mixed hyperlipidemia (CMS/HCC) Start: 12-31-2023 End: 12-31-2023 ambulatory JENA AICHHOLZ Not Available Start: 12-30-2023 End: 12-30-2023 ambulatory Alesia Deluna MD Facility: [facility] Start: 12-09-2023 End: 12-09-2023 ambulatory Alesia Deluna MD Facility: [facility] Start: 12-02-2023 End: 12-02-2023 ambulatory JENA AICHHOLZ Not Available Start: 11-26-2023 End: 11-26-2023 ambulatory JENA AICHHOLZ Not Available Start: 11-21-2023 End: 11-21-2023 ambulatory [facility] Work Phone: Start: 11-21-2023 End: 11-21-2023 Patient encounter procedure [facility] Work Phone: Start: 10-01-2021 End: 10-01-2021 ambulatory SHEILA PEREZ Facility:[facility] Start: 03-31-2021 End: 03-31-2021 ambulatory NOZZLE OPERATOR JENA JOHN Facility:[facility] Plan of Treatment Date Care Activity Detail Author Start: 01-30-2024 End: 01-30-2024 Patient encounter procedure 01/30/2024 10:30 AM EDT Office Visit [facility] [address] [place] [phone] Jena Harris, CARDIOVASCULAR TECHNICIAN [address] [place] [phone] [facility] Start: 1965 Screening for malign ant neoplasm of colon [facility] Payers Date Payer Category Payer Private Health Insurance 2023 Medicaid [id number] 2023 Medicaid [id number] 1965 Unknown [id number] 2.16.84 [id number] 1965 Unknown [id number] 2.16.84 [id number] 1966 Unknown [id number] 2.16.84 [id number] 1966 Unknown [id number] 2.16.84 [id number] 1966 Unknown [id number] 2.16.84 [id number] 1966 Unknown [id number] [id number]. [id number] 1966 Unknown [id number] [id number]. [id number] 1959 Unknown [id number] Social History Date Type Detail Facility Start: 11-21-2023 End: 01-17-2024 Tobacco smoking status NHIS Smoker (finding) [facility] Start: 1965 Sex Assigned At Male F [facility] Start: 11-26-2023 Tobacco smoking stat [facility] Smokes tobacco daily [facility] History of tobacco use Cigarette Smoker [facility] Start: 11-26-2023 Tobacco use and exposure Smokeless tobacco non-user [facility] Start: 12-31-2023 Alcoholic beverage intake Lifetime non-drinker (finding) [facility] Start: 11-26-2023 End: 12-31-2023 History of Social function [facility] Start: 11-26-2023 End: 12-31-2023 Tobacco use panel [facility] Start: 11-26-2023 Alcohol Comment caffine: 1cup coffee daily 3-4 pepsi daily [facility] Start: 1965 Sex assigned at Not on file N [facility] Clinical Notes 03-21-2024 to 03-24-2024 Telephone Encounter - Jena Harris NP - 03/24/2024 8:07 AM ESTTelephone Encounter - Jena Harris NP - 03/24/2024 8:07 AM ESTTelephone Encounter - Jena Harris NP - 03/21/2024 4:53 PM EST Note Date & Type Note Facility 03-24-2024 Telephone encounter Note Form atting of this note might be different from the original. Needs a fu appt for his blood pressure [place] [facility] 03-24-2024 Miscellaneous Notes Formattin g of this note might be different from the original. Needs a fu appt for his blood pressure [place] documented in this encounter [facility] 03-21-2024 Telephone encounter Note Form atting of this note might be different from the original. Please contact pt for a fu appt with me for blood pressure [place] [facility] 03-21-2024 Miscellaneous Notes Formattin g of this note might be different from the original. Please contact pt for a fu appt with me for blood pressure [place] documented in this encounter [facility] Healthcare Evaluation note Diagnosis Onset Date Left sided sciatica noneacti ve [facility] Work Phone: Evaluation note* Diagnosis Onset Date Resolution Status Left sided sciatica noneacti ve Exposure to confirmed case of COVID-19 noneactive Congestion of nasal sinus no neactive [facility] Work Phone: Evaluation note* Diagnosis Primary hypertension (CMS/HCC) Unspecified essential hypertension [facility] Diagnosis COVID-19 virus detected- Primary documented in this encounter [facility] HealthcareEvaluation note* Diagnosis Primary hypertension (CMS/HCC) Unspecified essential hypertension documented in this encounter [facility] Healthcare[facility] note* Diagnosis Back pain of lumbar region with sciatica- Primary Tobacco dependence Tobacco use disorder Primary hypertension (CMS/HCC) Unspecified essential hypertension Degenerative lumbar spinal stenosis- Primary Spinal stenosis of lumbar region Prostate cancer screening Special screening for malignant neoplasm of prostate Primary hypertension (CMS/HCC) Unspecified essential hypertension Tobacco dependence Tobacco use disorder Idiopathic chronic gout of multiple sites without tophus Obesity (BMI 30.0-34.9) Colon cancer screening Special screening for malignant neoplasms, colon Lumbar radiculopathy, acute Primary hypertension (CMS/HCC)- Primary Unspecified essential hypertension Obesity (BMI 30.0-34.9) Back pain of lumbar region with sciatica Tobacco dependence Tobacco use disorder COVID-19 virus detected documented in this encounter [facility] Healthcare[facility]* Diagnosis Back pain of lumbar region with sciatica- Primary Tobacco dependence Tobacco use disorder Primary hypertension (CMS/HCC) Unspecified essential hypertension Degenerative lumbar spinal stenosis- Primary Spinal stenosis of lumbar region Prostate cancer screening Special screening for malignant neoplasm of prostate Primary hypertension (CMS/HCC) Unspecified essential hypertension Tobacco dependence Tobacco use disorder Idiopathic chronic gout of multiple sites without tophus Obesity (BMI 30.0-34.9) Colon cancer screening Special screening for malignant neoplasms, colon Lumbar radiculopathy, acute Primary hypertension (CMS/HCC)- Primary Unspecified essential hypertension Obesity (BMI 30.0-34.9) Back pain of lumbar region with sciatica Tobacco dependence Tobacco use disorder COVID-19 virus detected [facility] Diagnosis Back pain of lumbar region with sciatica- Primary Tobacco dependence Tobacco use disorder Primary hypertension (CMS/HCC) Unspecified essential hypertension Degenerative lumbar spinal stenosis- Primary Spinal stenosis of lumbar region Prostate cancer screening Special screening for malignant neoplasm of prostate Primary hypertension (CMS/HCC) Unspecified essential hypertension Tobacco dependence Tobacco use disorder Idiopathic chronic gout of multiple sites without tophus Obesity (BMI 30.0-34.9) Colon cancer screening Special screening for malignant neoplasms, colon Lumbar radiculopathy, acute Primary hypertension (CMS/HCC)- Primary Unspecified essential hypertension Obesity (BMI 30.0-34.9) Back pain of lumbar region with sciatica Tobacco dependence Tobacco use disorder Primary hypertension (CMS/HCC) Unspecified essential hypertension [facility] Diagnosis Mixed hyperlipidemia (CMS/HCC) Mixed hyperlipidemia documented in this encounter [facility] Summary Purpose Family History Relationship Condition Age at Onset Recorded Date/T pedro father Heart disease Unknown Hypertension Unknown mother Heart disease Unknown Cerebrovascular accident (CVA) Unknown Advance Directives Advance Directive Response Recorded Date/ Time Advance Directives No November 20 3:47pm Chief Complaint and Reason for Visit Chief Complaint Left hip pain Reason for Visit Left sided sciatica Chief Complaint Left hip pain (wants covid test)chills,congestion Reason for Visit Left sided sciatica Exposure to confirmed case of COVID-19 Congestion of nasal sinus Additional Source Comments (unrecognized sect ion and content) No Status Records FoundNo Status Records FoundNo Status Records Found INFORMATION SOURCE (unrecogn ized section and content) DATE CREATED AUTHOR 10/04/2021 [facility] DATE CREATED AUTHOR AUTHOR'S ORGANIZ ATION 01/02/[address] [facility] DATE CREATED AUTHOR AUTHOR'S ORGANIZ ATION 01/05/2024 [facility] Care Teams (unrecognized sec tion and content) Team Status: Active Member Role Status Dates Jena Harris Primary Care Provider Active Team Status: Inactive Member Role Status Dates Chantale Neal APRN Attending Provider Active Start: November 21, 2023 End: November 21, 2023 Jena Harris Primary Care Provider Active Sta rt: November 21, 2023 End: November 21, 2023 Team Status: Inactive Member Role Status Dates Jena Harris Primary Care Provider Active Sta rt: January 17, 2024 End: January 17, 2024 Chantale Neal APRN Active Start : January 17, 2024 End: January 17, 2024 Delmis Pathak APRN Attending Provider Active S tart: January 17, 2024 End: January 17, 2024 Shrimp Cleaner Relationship Specialty Start Date End Date Clarence Bernardo MD [address] [place] [phone] PCP - General Family Medicine 11/25/23 Jena Harris NP [address] [place] [phone] Nurse Practitioner Family Medicine 11/25/23 Shrimp Cleaner Relationship Specialty Start Date End Date Clarence Bernardo MD [address] [place] [phone] PCP - General Family Medicine 11/25/23 Jena Harris NP [address] [place] [phone] Nurse Practitioner Family Medicine 11/25/23 Shrimp Cleaner Relationship Specialty Start Date End Date Clarence Bernardo MD [address] [place] [phone] PCP - General Family Medicine 11/25/23 Jena Harris NP [address] [place] [phone] Nurse Practitioner Family Medicine 11/25/23 Shrimp Cleaner Relationship Specialty Start Date End Date Clarence Bernardo MD [address] [place] [phone] PCP - General Family Medicine 11/25/23 Jena Harris NP [address] [place] [phone] Nurse Practitioner Family Medicine 11/25/23 Shrimp Cleaner Relationship Specialty Start Date End Date Clarence Bernardo MD [address] [place] [phone] PCP - General Family Medicine 11/25/23 Jena Harris NP [address] [place] [phone] Nurse Practitioner Family Medicine 11/25/23 Shrimp Cleaner Relationship Specialty Start Date End Date Clarence Bernardo MD [address] [place] [phone] PCP - General Family Medicine 11/25/23 Jena Harris NP [address] [place] [phone] Nurse Practitioner Family Medicine 11/25/23 Goals (unrecognized section and content) Goals may be documented in a n alternate sectionGoals may be documented in an alternate section Reason for Visit (unrecogniz ed section and content) Reason Onset Date Comments Med Refill 01/22/2024 Reason Comments Med Refill FOR RECORDS PERTAINING TO PATIENTS WHO ARE [...] BE BASED ON THE PRIMARY CLINICAL RECORDS. [employer] [facility]. provides no warranty or guarantee of the accuracy or completeness of information in this document.
--- NOTE | 2024-04-08 11:05 | P.CN_ITS ---
Consult Note: HPI Data of Consult Patient: known to practice within the last 3 years Consult date: 12/09/23 Requesting Physician: Mary Hoover NP Primary Care Provider: Jena Harris NP Consult Narrative Reason for consult: low back, left leg pain Narrative: 58yom who presents for evaluation. worsening low back, left leg pain. imaging reviewed, which is significant for multiple levels of disc bulging in lumbar spine, with stenosis at l3-4, l4-5, l5-s1. has continued in a series of provider directed home exercises >6 weeks, without significant benefit. has tried medrol dosepack, with some benefit, as well as percocet and robaxin. denies adverse med side effects. recently underwent left L3-4 L4-5 TFESI with 95% improvement ongoing cc:: CC: Mary Hoover NP Review of Systems ROS Status of ROS 10 or more systems reviewed and unremark able except as noted in history and below Musculoskeletal Denies: back pain or extremity pain [facility] Medical History (Updated 12/17/23 @ 14:50 by Ileana Lopez) Low back pain ?M54.50 - Low back pain, unspecified (ICD-10) Smoker ?F17.200 - Nicotine dependence, unspecified, uncomplicated (ICD-10) High cholesterol ?E78.00 - Pure hypercholesterolemia, unspecified (ICD-10) HTN (hypertension) ?I10 - Essential (primary) hypertension (ICD-10) Meds Home Medications and Allergies Home Medications ?Medication ?Instructions ?Recorded ?Confirmed ?Type methocarbamol 750 mg tablet 750 mg PO TID PRN pain #20 tabs 11/25/23 12/30/23 Rx oxycodone-acetaminophen 5 mg-325 1 tab PO Q6H PRN pain #12 tabs 11/25/23 0 12/30/23 Rx mg tablet (Percocet) atorvastatin 20 mg tablet 20 mg PO DAILY 12/09/23 12/30/23 History amlodipine 10 mg tablet mg 12/30/23 History Allergies Allergy/AdvReac Type Severity Reaction Status Date / Time No Known Drug Allergies Allergy Verified 12/30/23 10:42 Exam Narrative Exam Narrative: Psych-alert and oriented x 3. Attentive and appropriate, constitutionally normal, displays normal mood and affect per situation. There are no obvious deficits in memory, reasoning, or intellect.? Skin-no obvious rashes, bruising, erythema noted to the patient's area of pain.? Extremities- extremities are warm with minimal edema and palpable pulses. Lumbar-no tenderness to palpation noted in the lumbar spine and paraspinal musculature. no pain is elicited with flexion, extension, and lateral rotation of the lumbar spine. Range of motion intact. Facet loading maneuvers are negative Strength-noted to be unremarkable Sensory-no notable sensory deficits in the bilateral lower extremities to touch or pinprick in all dermatomal distributions Coordination remains intact.? Gait remains non-antalgic. Assessment and Plan Assessment and Plan (1) Lumbar disc displacement without myelopathy: (2) Lumbar stenosis with neurogenic claudication: (3) Left sided sciatica: Plan >80% improvement ongoing from left L3-4 L4-5 TFESI f/u PRN
== END 2024-04-08 10:53 | disposition home or self-care (01) ==
LOC: PM 10:53
PROVIDERS: PCP Nurse Practitioner; Visit Provider Nurse Practitioner
DX: M51.26 Other intervertebral disc displacement, lumbar region (principal); M48.062 Spinal stenosis, lumbar region with neurogenic claudication; M54.32 Sciatica, left side
CPT/HCPCS: G0463

== ENCOUNTER 2025-01-08 10:41 | Outpatient (OUT) | payer BC, SELFPAY ==
--- OUTSIDE RECORDS SUMMARY | 2025-01-08 10:46 | XMS_ITS | Encounter Summary ---
Author Organization [facility] Address [address] [place] [address] Care Team Providers Care Cook Roast Name Role Phone Clarence Bernardo MD Primary Care Provider [phone] Jena Harris NP Unavailable [phone] Encounter Details Date Type Department Care Team (Late st Contact Info) Description 12/02/2023 Abstract [facility] [address] [place] [address] Jena Harris NP [address] [place] [address] Social History Tobacco Use Types Packs/Day Years Used Date Smoking Tobacco: Every Day Cigarettes Smokeless Tobacco: Never Alcohol Use Standard Drinks/Week Comments Never 0 (1 standard drink = 0.6 oz pure alcohol) caffine: 1cup coffee daily 3-4 pepsi daily Sex and Gender Information Value Date Recorded Sex Assigned at Not on file Legal Sex Male 7:05 PM EDT Gender Identity Not on file Sexual Orientation Not on file documented as of this encounter Plan of Treatment Not on file documented as of this encounter Visit Diagnoses Not on filedocumented in this encounter Care Teams Cook Roast Relationship Specialty Start Date End Date Clarence Bernardo MD PCP - General Family Medicine 11/25/23 Jena Harris NP Nurse Practitioner Family Medicine 11/25/23 documented as of this encounter
--- OUTSIDE RECORDS SUMMARY | 2025-01-08 10:46 | XMS_ITS | CCD ---
Author Organization [facility] Informformerly [facility] Partnership [facility] CliniSymi Care Team Providers Care Fiberglass Dowel Drawing Operator Name Role Phone SHEILA PEREZ Admitting Unavailable SHEILA PEREZ Attending Unavailable AICHHOLZ, TYRESE AMBROCIO Primary Care Unavailable RINA SHETTY Consulting Unavailable SHEILA PEREZ Consulting Unavailable AICHHOLZ, TYRESE AMBROCIO Admitting Unavailable AICHHOLZ, GINNER HELPER JENA Attending Unavailable AICHHOLZ, GINNER HELPER JENA Consulting Unavailable AICHHOLZ, JENA Attending Unavailable AICHHOLZ, JENA Attending Unavailable AICHSENA, JENA Attending Unavailable Regi GIRON, Alesia Joseph Attending Unavailable eRgi GIRON, Alesia Joseph Attending Unavailable Clarence Bernardo MD Primary Care Provider Kimberly SENIOR EXAMINERJena Unavailable Kimberly SENIOR EXAMINER-CJena Primary Care Provider Kimberly WATERMAN-CJena Attending Provider Medications Current Medications Medication Drug Class(es) Dates Sig (Normalized) Sig (Original) acetaminophen 325 mg / oxyCODONE hydrochloride 5 mg oral tablet (5 sources) Opioid Agonist Start: 11-25-2023 End: 12-31-2023 oxyCODONE-acetami nophen (Percocet) 5-325 MG tablet 11/25/2023 12/31/2023 Discontinued (Therapy completed) [id number] 200 actuat albuterol 0.09 mg/actuat metered dose inhaler (11 sources) beta2-Adrenergic Agonist Start: 01-23-2024 End: 03-25-2024 take 2 puff(s) by inhalation every six hours for wheezing albuterol HFA 90 mcg/act inhaler Indications: COVID-19 virus detected Inhale 2 puffs every 6 (six) hours if needed for wheezing or shortness of breath 18 g 02/24/2024 Active amLODIPine 10 mg oral tablet (20 sources) Dihydropyridine Calcium Channel Johanna Start: 12-02-2023 End: 12-30-2024 take 1 tablet by mouth once daily amLODIPine (Norvasc) 10 MG tablet Indications: Primary hypertension Take 1 tablet (10 mg) by mouth Daily 30 tablet 11/30/2024 12/30/2024 Active atorvastatin 20 mg oral tablet (20 sources) HMG-CoA Reductase Inhibitor Start: 12-04-2023 End: 03-31-2024 take 1 tablet by mouth once daily at bedtime Atorvastatin 20 mg tablet Active 20 MG PO Daily at bedtime January 17, 2024 12:00am Complies with drug therapy gabapentin 300 mg oral capsule (5 sources) Anti-epileptic Agent Start: 12-02-2023 End: 12-31-2023 gabapentin (Neurontin) 300 MG capsule Indications: Degenerative lumbar spinal stenosis 1 pill at bedtime for 7 days, then increase to 1 pill twice a day 90 capsule 11 12/02/2023 12/31/2023 Discontinued losartan potassium 25 mg oral tablet (20 sources) Angiotensin 2 Receptor Johanna Start: 12-31-2023 End: 03-16-2025 take 1 tablet by mouth once daily Losartan 25 mg tablet Active 25 MG PO Daily January 17, 2024 12:00am Complies with drug therapy predniSONE 20 mg oral tablet (10 sources) Start: 01-23-2024 End: 01-28-2024 take 1 tablet by mouth in the morning predniSONE (Deltasone) 20 MG tablet Indications: COVID-19 virus detected Take 1 tablet (20 mg) by mouth in the morning and 1 tablet (20 mg) before bedtime. Do all this for 5 days. Take with food. 10 tablet 01/23/2024 01/28/2024 Active Start: 12-02-2023 End: 12-31-2023 predniSONE (Deltasone) 20 MG tablet Indications: Degenerative lumbar spinal stenosis 1 pill three times a day for 3 days, then 1 pill twice a day for 3 days, then 1 pill daily for 3 days, then 1/2 pill daily for 3 days. Take with food 20 tablet 12/02/2023 12/31/2023 Discontinued (Therapy completed) Start: 11-21-2023 End: 01-17-2024 take 2 tablets by mouth once daily Prednisone 20 mg tablet Discontinued 20 MG PO .COMPLEX November 21, 2023 12:00am January 17, 2024 1:33pm Take 2 tabs po daily x 5 days Problems Active Problems Problem Classification Problem Date Documented Da te Episodic/Chronic Disorders of lipid metabolism (20 sources) Mixed hyperlipidemia; Translations: [Mixed hyperlipidemia] Onset: 12-04-2023 12-04-2023 Chronic Essential hypertension (20 sources) Essential hypertension; Translations: [Essential (primary) hypertension] Onset: 11-26-2023 01-22-2024 Chronic Gout and other crystal arthropathies (20 sources) Gout; Translations: [Gout, unspecified] Onset: 11-26-2023 11-21-2023 Chronic Immunizations and screening for infectious disease (1 source) Contact with or exposure to other viral diseases; Translations: [Exposure to 2019 novel coronavirus] 01-17-2024 Episodic Other congenital anomalies (1 source) Congenital malformation of knee; Translations: [CONGENITAL MALFORMATION OF KNEE] Onset: 10-04-2021 Chronic Other male genital disorders (20 sources) Male erectile dysfunction, unspecified; Translations: [Impotence of organic origin] Onset: 11-26-2023 11-26-2023 Chronic Other non-traumatic joint disorders (3 sources) Pain in left knee; Translations: [PAIN IN LEFT KNEE] Onset: 10-01-2021 Episodic Other non-traumatic joint disorders (1 source) Effusion, left knee; Translations: [EFFUSION LEFT KNEE] Onset: 10-04-2021 Episodic Other nutritional; endocrine; and metabolic disorders (20 sources) Obese class I; Translations: [Obesity (BMI 30.0-34.9)] Onset: 12-02-2023 12-02-2023 Chronic Other nutritional; endocrine; and metabolic disorders (2 sources) Obesity caused by energy imbalance; Translations: [Other obesity due to excess calories] 01-01-2025 Chronic Other screening for suspected conditions (not mental disorders or infectious disease) (20 sources) Patient encounter status; Translations: [Encounter for screening for malignant neoplasm of prostate] Onset: 12-02-2023 12-02-2023 Episodic Other upper respiratory disease (1 source) Nasal congestion; Translations: [Other disease of nasal cavity and sinuses] 01-17-2024 Episodic Spondylosis; intervertebral disc disorders; other back problems (20 sources) Sciatica, left side; Translations: [Sciatica] Onset: 11-26-2023 11-21-2023 Episodic Substance-related disorders (20 sources) Nicotine dependence, cigarettes, uncomplicated; Translations: [Tobacco dependence syndrome] Onset: 10-04-2021 11-26-2023 Chronic Unclassified (2 sources) CONTACT W/AND (SUSP) EXPOS COVID-19; Translations: [CONTACT W/AND (SUSP) EXPOS COVID-19] Onset: 04-06-2021 Viral infection (20 sources) Disease caused by 2019-nCoV; Translations: [COVID-19] [...] RINA SHETTY Date: 2021-10-01 18:24 Normal [facility] Covid-19 PCR (CVDTBH)on 03-22 SARS-CoV-2 (COVID-19) RNA MAJO+probe Ql (Unsp spec) Detected Critically abnormal NOT DETECTED [facility] Comment on above: Result Comment: This test is not yet oliver roved or cleared by the [place] FDA. When there are no FDA-approved or cleared tests available, and other criteria are met, FDA can make tests available under an emergency access mechanism called an Emergency Use Authorization (EUA). The EUA for this test is supported by the Assistant Inventory Manager of Health and Human Service's (HHS's) declaration [...] longer be used). Performed By: #### [facility] #### [facility] [address] [place] [address] Dr. Hannah Mauricio Vital Signs Date Time Vital Sign Value Performing Clinician Facility 01-04-2025 10:47-0400 Diastolic blood pressure 82 mm[Hg] Jena Aichholz SENIOR EXAMINER-C Work Phone: [facility] 01-04-2025 10:47-0400 Systolic blood pressure 160 mm[Hg] Jena Aichholz SENIOR EXAMINER-C Work Phone: [facility] 01-04-2025 10:31-0400 Body height 177.8 cm Jena Aichholz SENIOR EXAMINER-C Work Phone: [facility] 01-04-2025 10:31-0400 Body mass index (BMI) [Ratio] 32.8 kg/m2 Jena Aichholz SENIOR EXAMINER-C Work Phone: [facility] 01-04-2025 10:31-0400 Body temperature 98.3 [degF] Jena Aichholz SENIOR EXAMINER-C Work Phone: [facility] 01-04-2025 10:31-0400 Body weight 103.92 kg Jena Aichholz SENIOR EXAMINER-C Work Phone: [facility] 01-04-2025 10:31-0400 Heart rate 74 /min Jena Aichholz SENIOR EXAMINER-C Work Phone: [facility] 01-04-2025 10:31-0400 Respiratory rate 18 /min Jena Kimberly SENIOR EXAMINER-C Work Phone: [facility] 01-04-2025 10:31-0400 SaO2% (BldA) [Mass fraction] 98 % Jena Kimberly SENIOR EXAMINER-C Work Phone: [facility] 01-17-2024 13:30-0400 Body height 177.8 cm [facility] 01-17-2024 13:30-0400 Body mass index (BMI) [Ratio] 33.1 kg/m2 [facility] 01-17-2024 13:30-0400 Body temperature 99 [degF] [facility] 01-17-2024 13:30-0400 Body weight 104.83 kg [facility] 01-17-2024 13:30-0400 Diastolic blood pressure 71 mm[Hg] [facility] 01-17-2024 13:30-0400 Heart rate 77 /min [facility] 01-17-2024 13:30-0400 Respiratory rate 18 /min [facility] 01-17-2024 13:30-0400 SaO2% (BldA) [Mass fraction] 97 % [facility] 01-17-2024 13:30-0400 Systolic blood pressure 148 mm[Hg] [facility] 12-31-2023 11:14-0400 Body height 177.8 cm Jena Kimberly SENIOR EXAMINER Work Phone: [facility] 12-31-2023 11:14-0400 Body mass index (BMI) [Ratio] 33.81 kg/m2 Jena Kimberly SENIOR EXAMINER Work Phone: [facility] 12-31-2023 11:14-0400 Body temperature 97.59 [degF] Jena Kimberly SENIOR EXAMINER Work Phone: [facility] 12-31-2023 11:14-0400 Body weight 106.87 kg Jena Kimberly SENIOR EXAMINER Work Phone: [facility] 12-31-2023 11:14-0400 Diastolic blood pressure 84 mm[Hg] Jena Harris SENIOR EXAMINER Work Phone: [facility] 12-31-2023 11:14-0400 Heart rate 95 /min Jena Harris SENIOR EXAMINER Work Phone: [facility] 12-31-2023 11:14-0400 Respiratory rate 18 /min Jena Harris SENIOR EXAMINER Work Phone: [facility] 12-31-2023 11:14-0400 SaO2% (BldA) [Mass fraction] 99 % Jena Harris SENIOR EXAMINER Work Phone: [facility] 12-31-2023 11:14-0400 Systolic blood pressure 160 mm[Hg] Jena Harris SENIOR EXAMINER Work Phone: [facility] 11-21-2023 15:57-0400 Body height 177.8 cm [facility] 11-21-2023 15:57-0400 Body mass index (BMI) [Ratio] 33 kg/m2 [facility] 11-21-2023 15:57-0400 Body temperature 99.5 [degF] [facility] 11-21-2023 15:57-0400 Body weight 104.32 kg [facility] 11-21-2023 15:57-0400 Diastolic blood pressure 80 mm[Hg] [facility] 11-21-2023 15:57-0400 Heart rate 69 /min [facility] 11-21-2023 15:57-0400 Respiratory rate 18 /min [facility] 11-21-2023 15:57-0400 SaO2% (BldA) [Mass fraction] 99 % [facility] 11-21-2023 15:57-0400 Systolic blood pressure 182 mm[Hg] [facility] Encounters Encounter Date Encounter Type Care Provider Facility Start: 01-04-2025 End: 01-04-2025 ambulatory Jena Harris SENIOR EXAMINER-C Work Phone: [facility] Work Phone: Start: 01-04-2025 End: 01-04-2025 Patient encounter procedure Jena Harris SENIOR EXAMINER-C -[facility] Work Phone: Start: 01-04-2025 Patient encounter status Jena Harris SENIOR EXAMINER-C Work Phone: [facility] Start: 12-16-2024 End: 12-16-2024 Refill Jena Stephanyz SENIOR EXAMINER Work Phone: [facility] Comment on above: Primary hypertension Start: 11-30-2024 End: 11-30-2024 Refill Jena Candyholz SENIOR EXAMINER Work Phone: [facility] Comment on above: Primary hypertension Start: 09-15-2024 End: 09-15-2024 Refill Jena Stephanyz SENIOR EXAMINER Work Phone: [facility] Comment on above: Primary hypertension (CMS/HCC) Start: 08-25-2024 End: 08-26-2024 Refill Jena Aictorstenholz SENIOR EXAMINER Work Phone: [facility] Comment on above: Primary hypertension (CMS/HCC) Start: 05-28-2024 End: 05-28-2024 Refill Jena Candyholz SENIOR EXAMINER Work Phone: [facility] Comment on above: Primary hypertension (CMS/HCC) Start: 05-28-2024 End: 05-28-2024 Telephone encounter Jena Stephanyz SENIOR EXAMINER Work Phone: [facility] Start: 03-24-2024 End: 03-24-2024 Refill Jena Aictorstenholz SENIOR EXAMINER Work Phone: [facility] Comment on above: Primary hypertension (CMS/HCC) Start: 03-21-2024 End: 03-21-2024 Refill Jena Aichholz SENIOR EXAMINER Work Phone: [facility] Comment on above: COVID-19 virus detec ida Start: 02-23-2024 End: 02-24-2024 Refill Jena Aichholz SENIOR EXAMINER Work Phone: [facility] Comment on above: COVID-19 virus detec ida Start: 01-27-2024 End: 01-27-2024 Refill Jena Aichholz SENIOR EXAMINER Work Phone: [facility] Comment on above: Primary hypertension (CMS/HCC) Start: 01-23-2024 End: 01-23-2024 Refill Jena Aichholz SENIOR EXAMINER Work Phone: [facility] Comment on above: COVID-19 virus detec ida (Primary Dx) Start: 01-22-2024 End: 01-22-2024 Refill Jena Aichholz SENIOR EXAMINER Work Phone: [facility] Comment on above: Primary hypertension (CMS/HCC) Start: 01-17-2024 End: 01-17-2024 ambulatory [facility] Work Phone: Start: 01-17-2024 End: 01-17-2024 Patient encounter procedure [facility] Work Phone: Start: 01-01-2024 End: 01-01-2024 Refill Jena Aichholz SENIOR EXAMINER Work Phone: [facility] Comment on above: Mixed hyperlipidemia (CMS/HCC) Start: 12-31-2023 End: 12-31-2023 Bamboo flowsheet Jena Aichholz SENIOR EXAMINER Work Phone: [facility] Start: 12-31-2023 End: 12-31-2023 Bamboo flowsheet Jena Aichholz SENIOR EXAMINER Work Phone: [facility] Start: 12-31-2023 End: 12-31-2023 Office outpatient visit 15 minutes Jena Aichholz SENIOR EXAMINER Work Phone: [facility] Comment on above: Primary hypertension (CMS/HCC) (Primary Dx); Obesity (BMI 30.0-34.9); Back pain of lumbar region with sciatica; Tobacco dependence Start: 12-31-2023 End: 12-31-2023 ambulatory JENA AICHHOLZ Not Available Start: 12-30-2023 End: 12-30-2023 Refill Jena Aichholz SENIOR EXAMINER Work Phone: [facility] Comment on above: Mixed hyperlipidemia (CMS/HCC) Start: 12-30-2023 End: 12-30-2023 ambulatory Alesia Deluna MD Facility[facility] Start: 12-27-2023 End: 12-28-2023 Refill Jena Aichholz SENIOR EXAMINER Work Phone: [facility] Comment on above: Primary hypertension (CMS/HCC) Start: 12-09-2023 End: 12-09-2023 ambulatory Alesia Deluna MD Facility:[facility] Start: 12-02-2023 End: 12-02-2023 ambulatory JENA AICHHOLZ Not Available Start: 11-26-2023 End: 11-26-2023 ambulatory JENA AICHHOLZ Not Available Start: 11-21-2023 End: 11-21-2023 ambulatory [facility] Work Phone: Start: 11-21-2023 End: 11-21-2023 Patient encounter procedure [facility] Work Phone: Start: 10-01-2021 End: 10-01-2021 ambulatory SHEILA CHRIS Facility:[facility] Start: 03-31-2021 End: 03-31-2021 ambulatory GINNER HELPER JENA AICHHOLZ Facility:[facility] Plan of Treatment Date Care Activity Detail Author Start: 01-04-2025 End: 01-04-2025 Patient encounter procedure 01/04/2025 10:00 AM EDT Office Visit [facility] [address] [place] [address] Jena Harris NP [address] [place] [address] [facility] Start: 01-30-2024 End: 01-30-2024 Patient encounter procedure 01/30/2024 10:30 AM EDT Office Visit [facility] [address] [place] [id number] Jena Harris, GUEVARA [address] [place] [phone] [facility] Start: 12-31-2023 End: 12-31-2023 Patient encounter procedure [facility] Comment on above: Arrived Start: 1965 Screening for malign ant neoplasm of colon [facility] metabo lic 2000 panel - Serum or Plasma [facility] Payers Date Payer Category Payer Private Health Insurance 2023 Medicaid [id number] 2023 Medicaid [id number] 1965 Unknown [id number] 1966 Unknown [id number] 1966 Unknown [id number] 1966 Unknown [id number] 1966 Unknown [id number] 1966 Unknown [id number] 1966 Unknown [id number] 1959 Unknown [id number] Unknown Trino BC/BS [id number] Social History Date Type Detail Facility Start: 11-21-2023 End: 01-17-2024 Tobacco smoking status NHIS Smoker (finding) [facility] Start: 1965 Sex Assigned At Male F [facility] Start: 11-26-2023 End: 12-15-2024 Tobacco smoking status NHIS Smokes tobacco daily [facility] History of tobacco use Cigarette Smoker [facility] Start: 11-26-2023 Tobacco use and exposure Smokeless tobacco non-user [facility] Start: 12-02-2023 End: 12-31-2023 Alcoholic beverage intake Lifetime non-drinker (finding) [facility] Start: 11-26-2023 End: 12-31-2023 History of Social function [facility] Start: 11-26-2023 End: 12-31-2023 Tobacco use panel [facility] Start: 11-26-2023 Alcohol Comment caffine: 1cup coffee daily 3-4 pepsi daily [facility] Start: 1965 Sex assigned at Not on file [facility] Sex Male (finding) [facility] Clinical Notes 12-31-2023 to 08-26-2024 Telephone Encounter - Jena Harris NP - 08/26/2024 8:14 AM EDTTelephone Encounter - Jena Harris NP - 08/26/2024 8:14 AM EDTTelephone Encounter - Jena Harris NP - 05/28/2024 8:01 AM EST Note Date & Type Note Facility 08-26-2024 Telephone encounter Note Form atting of this note might be different from the original. Please contact pt to schedule a fu appt LA [facility] 08-26-2024 Miscellaneous Notes Formattin g of this note might be different from the original. Please contact pt to schedule a fu appt [place] documented in this encounter [facility] 05-28-2024 Telephone encounter Note Form atting of this note might be different from the original. Contact pt, needs an appt for BP recheck. Last seen 01/13, no show for appt 02/12 Please reschedule appt LA [facility] 05-28-2024 Miscellaneous Notes Formattin g of this note might be different from the original. Contact pt, needs an appt for BP recheck. Last seen 01/13, no show for appt 02/12 Please reschedule appt [place] documented in this encounter [facility] 03-24-2024 Telephone encounter Note Form atting of this note might be different from the original. Needs a fu appt for his blood pressure LA [facility] 03-24-2024 Miscellaneous Notes Formattin g of this note might be different from the original. Needs a fu appt for his blood pressure [place] documented in this encounter [facility] 03-21-2024 Telephone encounter Note Form atting of this note might be different from the original. Please contact pt for a fu appt with me for blood pressure LA [facility] 03-21-2024 Miscellaneous Notes Formattin g of this note might be different from the original. Please contact pt for a fu appt with me for blood pressure [place] documented in this encounter [facility] 12-31-2023 History of Presen t illness Narrative Associated Problem(s): Obesity (BMI 30.0-34.9) Recommend weight loss, recommend consideration of Weight Watchers Associated Problem(s): Tobacco dependence Recommend quitting smoking Associated Problem(s): Back pain of lumbar region with sciatica Cont with [facility] pain mgmt Had injection yesterday, cont with fu with them Associated Problem(s): Primary hypertension (CMS/HCC) Will add losartan 25mg daily Fu in 4 weeks for recheck Recommend weight loss and quitting smoking Pt used wrist cuff on right wrist for BP: 167/92 Images from the original note were not included. Jad Arriaga is a 58 y.o. male presents with chief complaint of No chief complaint on file. HPI: Hypertension This is a chronic problem. The current episode started more than 1 month ago. The problem has been gradually improving since onset. The problem is uncontrolled. Pertinent negatives include no anxiety, chest pain, palpitations, peripheral edema or shortness of breath. There are no associated agents to hypertension. Risk factors for coronary artery disease include male gender, obesity, dyslipidemia and smoking/tobacco exposure. Past treatments include calcium channel blockers. The current treatment provides moderate improvement. There are no compliance problems. SUBJECTIVE: MEDICATIONS: Current Outpatient Medications Medication Instructions amLODIPine (NORVASC) 10 mg, Oral, Daily atorvastatin (LIPITOR) 20 mg, Oral, Nightly losartan (COZAAR) 25 mg, Oral, Daily ALLERGIES: No Known Allergies REVIEW OF SYMPTOMS: Review of Systems Constitutional: Negative for activity change, appetite change and unexpected weight change. HENT: Negative for ear pain, nosebleeds, sneezing, trouble swallowing and voice change. Eyes: Negative for pain, discharge and visual disturbance. Respiratory: Negative for apnea, chest tightness, shortness of breath and wheezing. Cardiovascular: Negative for chest pain, palpitations and leg swelling. Gastrointestinal: Negative for abdominal distention, blood in stool, constipation and diarrhea. Genitourinary: Negative for decreased urine volume, difficulty urinating, dysuria and hematuria. Musculoskeletal: Positive for back pain. Skin: Negative for color change. Neurological: Negative for dizziness, tremors and seizures. Psychiatric/Behavioral: Negative for agitation, decreased concentration, hallucinations, self-injury and suicidal ideas. The patient is not nervous/anxious. Hematological: Negative for adenopathy. Does not bruise/bleed easily. Endocrine: Negative for cold intolerance, heat intolerance, polydipsia and polyuria. Allergic/Immunologic: Negative for environmental allergies and food allergies. PAST MEDICAL HISTORY History reviewed. No pertinent past medical history. History reviewed. No pertinent surgical history. family history is not on file. OBJECTIVE: Visit Vitals BP 160/84 (BP Location: Left arm, Patient Position: Sitting, BP Cuff Size: Adult long) Pulse 95 Temp 97.6 F (Temporal) Resp 18 Ht 5' 10 Wt 235 lb 9.6 oz SpO2 99% BMI 33.81 kg/m Smoking Status Every Day BSA 2.3 m Physical Exam Vitals and nursing note reviewed. Constitutional: Appearance: Normal appearance. HENT: Head: Normocephalic. Right Ear: External ear normal. Left Ear: External ear normal. Nose: Nose normal. Mouth/Throat: Mouth: Mucous membranes are moist. Pharynx: Oropharynx is clear. Eyes: Extraocular Movements: Extraocular movements intact. Conjunctiva/sclera: Conjunctivae normal. Cardiovascular: Rate and Rhythm: Normal rate and regular rhythm. Pulses: Normal pulses. Heart sounds: Normal heart sounds. Pulmonary: Effort: Pulmonary effort is normal. Breath sounds: Normal breath sounds. Abdominal: General: Bowel sounds are normal. Palpations: Abdomen is soft. Musculoskeletal: Cervical back: Neck supple. Skin: General: Skin is warm and dry. Capillary Refill: Capillary refill takes 2 to 3 seconds. Neurological: General: No focal deficit present. Mental Status: He is alert. Psychiatric: Mood and Affect: Mood normal. Behavior: Behavior normal. Thought Content: Thought content normal. Judgment: Judgment normal. ASSESSMENT AND PLAN: No follow-ups on file. Problem List Items Addressed This Visit Tobacco dependence Recommend quitting smoking Primary hypertension (CMS/HCC) - Primary Will add losartan 25mg daily Fu in 4 weeks for recheck Recommend weight loss and quitting smoking Relevant Medications losartan (Cozaar) 25 MG tablet Back pain of lumbar region with sciatica Cont with [facility] pain mgmt Had injection yesterday, cont with fu with them Obesity (BMI 30.0-34.9) Recommend weight loss, recommend consideration of Weight Watchers documented in this encounter [facility] Evaluation note Diagnosis Onset Date Left sided sciatica noneacti ve [facility] Work Phone: Evaluation note* Diagnosis Onset Date Resolution Status Left sided sciatica noneacti ve Exposure to confirmed case of COVID-19 noneactive Congestion of nasal sinus no neactive [facility] Work Phone: Evaluation note* Diagnosis Primary hypertension (CMS/HCC) Unspecified essential hypertension [facility] COVID-19 virus detected- Primary [facility] Diagnosis Primary hypertension (CMS/HCC) Unspecified [...] Mixed hyperlipidemia [facility] Diagnosis Primary hypertension (CMS/HCC) Unspecified essential hypertension [facility] Diagnosis Mixed hyperlipidemia (CMS/HCC) Mixed hyperlipidemia [facility] Diagnosis Primary hypertension (CMS/HCC)- Primary Unspecified essential hypertension Obesity (BMI 30.0-34.9) Back pain of lumbar region with sciatica Tobacco dependence Tobacco use disorder [facility] [...] Unspecified essential hypertension documented in this encounter [facility]* Diagnosis Back pain of lumbar [...] Unspecified essential hypertension documented in this encounter [facility]* Diagnosis Back pain of lumbar region with sciatica- Primary Tobacco dependence Tobacco use disorder Primary hypertension Unspecified essential hypertension Degenerative lumbar spinal stenosis- Primary Spinal stenosis of lumbar region Prostate cancer screening Special screening for malignant neoplasm of prostate Primary hypertension Unspecified essential hypertension Tobacco dependence Tobacco use disorder Idiopathic chronic gout of multiple sites without tophus Obesity (BMI 30.0-34.9) Colon cancer screening Special screening for malignant neoplasms, colon Lumbar radiculopathy, acute Primary hypertension- Primary Unspecified essential hypertension Obesity (BMI 30.0-34.9) Back pain of lumbar region with sciatica Tobacco dependence Tobacco use disorder Primary hypertension Unspecified essential hypertension documented in this encounter [facility] note* Diagnosis Onset Date Resolution Status Admit Date Essential hypertension acute Se ptember 2024 10:04am Mixed hyperlipidemia acute Sept ember 2024 10:04am Nicotine dependence acute Sept mb2024 10:04am Obesity due to excess calories acute January 04, 2025 10:04am [facility] Work Phone: Reason for referral (narrative)No reason for referral information [facility] Phone: Summary Purpose Family History Relationship Condition Age at Onset Recorded Date/T pedro father Heart disease Unknown Hypertension Unknown mother Heart disease Unknown Cerebrovascular accident (CVA) Unknown Advance Directives Advance Directive Response Recorded Date/ Time Advance Directives No November 20 024 3:47pm Advance Directive Response Recorded Date/ Time Advance Directives No December 15, 2024 4:22pm Chief Complaint and Reason for Visit Chief Complaint Left hip pain Reason for Visit Left sided sciatica Chief Complaint Left hip pain (wants covid test)chills,congestion Reason for Visit Left sided sciatica Exposure to confirmed case of COVID-19 Congestion of nasal sinus Chief Complaint Admit Date follow up from cancelled appointments Se ptember 2024 10:04am Reason for Visit Admit Date Essential hypertension January 04 025 10:04am Mixed hyperlipidemia January 04 10:04am Nicotine dependence January 04, 2025 10:04am Obesity due to excess calories January 04, 2025 10:04am Additional Source Comments (unrecognized sect ion and content) No Status Records FoundNo Status Records FoundNo Status Records Found INFORMATION SOURCE (unrecogn ized section and content) DATE CREATED AUTHOR 10/04/2021 [facility] DATE CREATED AUTHOR AUTHOR'S ORGANIZ ATION 01/02/2024 [facility] EPIC DATE CREATED AUTHOR AUTHOR'S ORGANIZ ATION 01/05/2024 [facility] Care Teams (unrecognized sec tion and content) [...] January 17, 2024 End: January 17, 2024 [employer] Drawing Operator Relationship Specialty Start Date End Date Clarence Bernardo MD [address] [place] [phone] PCP - General Family Medicine 11/25/23 Jena Harris NP [address] [place] [address] Nurse Practitioner Family Medicine 11/25/23 [employer] Drawing Operator Relationship Specialty Start Date End Date Clarence Bernardo MD [address] [place] [address] PCP - General Family Medicine 11/25/23 Jena Harris NP [address] [place] [address] Nurse Practitioner Family Medicine 11/25/23 [employer] Drawing Operator Relationship Specialty Start Date End Date Clarence Bernardo MD [address] [place] [phone] PCP - General Family Medicine 11/25/23 Jena Harris NP [address] [place] [address] Nurse Practitioner Family Medicine 11/25/23 [employer] Drawing Operator Relationship Specialty Start Date End Date Clarence Bernardo MD [address] [place] [address] PCP - General Family Medicine 11/25/23 Jena Harris NP [address] [place] [address] Nurse Practitioner Family Medicine 11/25/23 [employer] Drawing Operator Relationship Specialty Start Date End Date Clarence Bernardo MD [address] [place] [phone] PCP - General Family Medicine 11/25/23 Jena Harris NP [address] [place] [address] Nurse Practitioner Family Medicine 11/25/23 [employer] Drawing Operator Relationship Specialty Start Date End Date Clarence Bernardo MD [address] [place] [phone] PCP - General Family Medicine 11/25/23 Jena Harris NP [address] [place] [address] Nurse Practitioner Family Medicine 11/25/23 [employer] Drawing Operator Relationship Specialty Start Date End Date Clarence Bernardo MD [address] [place] [phone] PCP - General Family Medicine 11/25/23 Jena Harris NP [address] [place] [phone] Nurse Practitioner Family Medicine 11/25/23 [employer] Drawing Operator Relationship Specialty Start Date End Date Clarence Bernardo MD [address] [place] [phone] PCP - General Family Medicine 11/25/23 Jena Harris NP [address] [place] [phone] Nurse Practitioner Family Medicine 11/25/23 [employer]el Drawing Operator Relationship Specialty Start Date End Date Clarence Bernardo MD [address] [place] [address] PCP - General Family Medicine 11/25/23 Jena Harris NP [address] [place] [address] Nurse Practitioner Family Medicine 11/25/23 [employer] Drawing Operator Relationship Specialty Start Date End Date Clarence Bernardo MD [address] [place] [phone] PCP - General Family Medicine 11/25/23 Jena Harris NP [address] [place] [address] Nurse Practitioner Family Medicine 11/25/23 [employer] Dowel Drawing Operator Relationship Specialty Start Date End Date Clarence Bernardo MD [address] [place] [phone] PCP - General Family Medicine 11/25/23 Jena Harris NP [address] [place] [address] Nurse Practitioner Family Medicine 11/25/23 [employer] Drawing Operator Relationship Specialty Start Date End Date Clarence Bernardo MD [address] [place] [address] PCP - General Family Medicine 11/25/23 Jena Harris NP [address] [place] [address] Nurse Practitioner Family Medicine 11/25/23 Team Status: Active Member Role Status Dates ORESTES Clements Primary Care Provider Active Team Status: Inactive Member Role Status Dates ORESTES Clements Primary Care Provider Active Start: January 04, 2025 End: January 04, 2025 ORESTES Clements Attending Provider Active Start: January 04, 2025 End: January 04, 2025 Goals (unrecognized section and content) Goals may be documented in a n alternate sectionGoals may be documented in an alternate sectionGoals may be documented in an alternate section Reason for Visit (unrecogniz ed section and content) Reason Onset Date Comments Med Refill 01/22/2024 Reason Comments Med Refill Reason Onset Date Comments Med Refill 12/27/2023 Reason Onset Date Comments Med Refill 12/30/2023 Reason Onset Date Comments Med Refill 11/30/2024 FOR RECORDS PERTAINING TO PATIENTS WHO ARE [...] BE BASED ON THE PRIMARY CLINICAL RECORDS. [employer] provides no warranty or guarantee of the accuracy or completeness of information in this document.
--- OUTSIDE RECORDS SUMMARY | 2025-01-08 10:46 | XMS_ITS | Encounter Summary ---
Author Organization [facility] Address [address] [place] [address] Care Team Providers Care Food And Beverage Lead Name Role Phone Clarence Bernardo MD Primary Care Provider [phone] Jena Harris BANK SECRECY ACT OFFICER Unavailable [phone] Reason for Visit * Reason Comments Med Refill Encounter Details Date Type Department Care Team (Late st Contact Info) Description 10/29/2024 [facility]ill [facility] [address] [place] [address] Jena Harris NP [address] [place] [address] Primary hypertension Social History Tobacco Use Types Packs/Day Years [...] documented as of this encounter Visit Diagnoses Diagnosis Primary hypertension Unspecified essential hypertension documented in this encounter Care Teams Food And Beverage Lead Relationship Specialty Start Date End Date Clarence Bernardo MD PCP - General Family Medicine 11/25/23 Jena Harris NP Nurse Practitioner Family Medicine 11/25/23 documented as of this encounter
--- OUTSIDE RECORDS SUMMARY | 2025-01-08 10:46 | XMS_ITS | Encounter Summary ---
Author Organization [facility] Address [address] [place] [address] Care Team Providers Care Television Program Director Name Role Phone Clarence Bernardo MD Primary Care Provider [phone] Jena Harris NP Unavailable [phone] Encounter Details Date Type Department Care Team (Late st Contact Info) Description 10/29/2024 Abstract [facility] [address] [place] [address] Jena Harris NP [address] [place] [address] Social History Tobacco Use Types Packs/Day Years [...] on filedocumented in this encounter Care Teams Television Program Director Relationship Specialty Start Date End Date Clarence Bernardo MD PCP - General Family Medicine 11/25/23 Jena Harris NP Nurse Practitioner Family Medicine 11/25/23 documented as of this encounter
--- OUTSIDE RECORDS SUMMARY | 2025-01-08 10:46 | XMS_ITS | Clinical Summary ---
Author Organization [facility] Address [address] [place] [address] Care Team Providers Care Lock Tender Name Role Phone Clarence Bernardo MD Primary Care Provider Jena Harris NP Unavailable [phone] Allergies No known active allergies Medications atorvastatin (Lipitor) 20 MG tabletIndications :Mixed hyperlipidemia Take 1 tablet (20 mg) by mouth at bedtime 90 tablet 01/01/20 24 Active albuterol HFA 90 mcg/act inhalerIndication s:COVID-19 virus detected Inhale 2 puffs every 6 (six) hours if needed for wheezing or shortness of breath 18 g 02/24/20 24 Active amLODIPine (Norvasc) 10 MG tabletIndications :Primary hypertension Take 1 tablet (10 mg) by mouth Daily 30 tablet 12/01/19 25 Active losartan (Cozaar) 25 MG tabletIndications :Primary hypertension Take 1 tablet (25 mg) by mouth Daily 90 tablet 12/17/19 25 025 Active losartan (Cozaar) 25 MG tabletIndications :Primary hypertension TAKE 1 TABLET BY MOUTH EVERY DAY 90 tablet 09/16/19 25 025 Discontinued Active Problems Problem Noted Date Diagnosed Date COVID-19 virus detected 01/23/2024 Mixed hyperlipidemia 12/04/2023 Abnormal CBC 12/04/2023 Prostate cancer screening 12/02/2023 Obesity (BMI 30.0-34.9) 12/02/2023 Assessment & Plan (12/31/2023 1:04 PM EDT): Recommend weight loss, recommend consideration of Weight Watchers Colon cancer screening 12/02/2023 Lumbar radiculopathy, acute 12/02/2023 Assessment & Plan (12/02/2023 12:33 PM EDT): L4-5 dermatome Degenerative lumbar spinal stenosis 11/27/2023 Overview (11/27/2023): CT lumbar spine [facility] 11/25/23 Assessment & Plan (12/02/2023 11:05 AM EDT): Reviewed CT scan Restart steroid taper Add gabapentin as directed Consult pain mgmt Will remain off work another week, RTW on 12/09/23 and he will be limited to 8 hour day If needs longer off will contact office RTO in 3 weeks Erectile dysfunction 11/26/2023 Idiopathic chronic gout of multiple sites juana stevenson 11/26/2023 Tobacco dependence 11/26/2023 Assessment & Plan (12/31/2023 1:04 PM EDT): Recommend quitting smoking Primary hypertension 11/26/2023 Assessment & Plan (12/31/2023 11:43 AM EDT): Will add losartan 25mg daily Fu in 4 weeks for recheck Recommend weight loss and quitting smoking Assessment & Plan (12/02/2023 11:06 AM EDT): Increase dose on amlodpine to 10mg daily Fu in 3 weeks Check labs Assessment & Plan (11/26/2023 4:58 PM EDT): Add amlodipine at 5mg daily Recommend quitting smoking Fu in 1 week for recheck Adivsed slow position changes Back pain of lumbar region with sciatica 024 Assessment & Plan (12/31/2023 1:03 PM EDT): Cont with [facility] pain mgmt Had injection yesterday, cont with fu with them Assessment & Plan (11/26/2023 5:00 PM EDT): Pain has been on and off, cannot for sure say related to work, as he did not have a specific SHIVA DDD noted on CT lumbar spine, per pt and Does not want to take any meds from the ER Recommend Ice,,stretching exercises Off work remainder of the week, w RTW on Saturday and limit to 8 hour days Fu in 1 week for recheck Resolved Problems Problem Noted Date Diagnosed Date Resolved Date COVID 01/30/2024 01/30/2024 Encounters Date Type Department Care Team Description 12/16/2024 Refill [facility] [address] [place] [address] Jena Harris NP Primary hypertension 11/30/2024 Refill [facility] [address] [place] [address] Jena Harris NP Primary hypertension 11/23/2024 Telephone [facility] [address] [place] [address] Jena Harris NP 10/29/2024 [facility] [address] [place] [address] Jena Harris NP 10/29/2024 Refill [facility] [address] [place] [address] Jena Harris NP Primary hypertension from Last 3 Months Social History Tobacco Use Types Packs/Day Years Used Date Smoking Tobacco: Every Day Cigarettes Smokeless Tobacco: Never Tobacco Cessation:Ready to Q uit: Not Asked; Counseling Given: Not Answered Alcohol Use Standard Drinks/Week Comments Never 0 (1 standard drink = 0.6 oz pure alcohol) caffine: 1cup coffee daily 3-4 pepsi daily Sex and Gender Information Value Date Recorded Sex Assigned at Not on file Legal Sex Male 7:05 PM EDT Gender Identity Not on file Sexual Orientation Not on file Last Filed Vital Signs Vital Sign Reading Time Taken Comments Blood Pressure 160/84 12/31/2023 11:14 AM EDT Pulse 95 12/31/2023 11:14 AM EDT Temperature 36.4 C (97.6 F) 12/31/2023 11:14 AM EDT Respiratory Rate 18 12/31/2023 11:14 AM EDT Oxygen Saturation 99% 12/31/2023 11:14 AM EDT Inhaled Oxygen Concentration - - Weight 107 kg (235 lb 9.6 oz) 12/31/2023 11:14 A M EDT Height 177.8 cm (5' 10 ) 12/31/2023 11:14 AM EDT Body Mass Index 33.81 12/31/2023 11:14 AM EDT Plan of Treatment Health Maintenance Due Date Last Done Comments CT Colonography 1966 Colonoscopy 1966 Colorectal Cancer Screening 1966 FIT-DNA 1966 FIT 1966 FOBT 1966 Sigmoidoscopy 1966 Influenza Vaccine Discontinued Insurance [address] [place] [address] [employer] [place] Care Teams Lock Tender Relationship Specialty Start Date End Date Clarence Bernardo MD PCP - General Family Medicine 11/25/23 Jena Harris NP Nurse Practitioner Family Medicine 11/25/23
[2025-01-08 12:00] LABS: Hematocrit 40.8 % (42.0-54.0); Hemoglobin 13.8 g/dL (14.0-18.0); Immature Granulocytes Abs Auto 0.02 10^3/uL (0.00-0.03); Immature Granulocytes Pct Auto 0.2 % (0.0-0.5); Lymphocytes Absolute Auto 2.3 10^3/uL (1.2-3.8); Mean Corpuscular HGB Conc 33.8 g/dL (29.9-35.2); Mean Corpuscular Hemoglobin 31.7 pg (25.9-34.0); Mean Corpuscular Volume 93.6 fL (80.0-94.0); Platelet Count 258 10^3/uL (150-450); Red Blood Count 4.36 10^6/uL (4.70-6.10); White Blood Count 9.0 10^3/uL (4.0-11.0)
[2025-01-08 12:25] LABS: Alanine Aminotransferase 26 U/L (16-63); Albumin Globulin Ratio 1.0; Albumin Level 3.8 g/dL (3.4-5.0); Alkaline Phosphatase 110 U/L (46-116); Anion Gap 11.8; Aspartate Amino Transferase 14 U/L (15-37); Blood Urea Nitrogen 10.0 mg/dL (7.0-18.0); Calcium 9.0 mg/dL (8.5-10.1); Carbon Dioxide 30.9 mmol/L (21.0-32.0); Chloride 104 mmol/L (98-107); Cholesterol 241 mg/dL (<=200); Estimated GFR (African America >60 (>=60 mL/min/1.73m^2); Estimated GFR (Non-African Ame >60 (>=60 mL/min/1.73m^2); Globulin 3.8 g/dL; Glucose 98 mg/dL (74-106); HDL Cholesterol 33 mg/dL (40-60); Potassium 4.7 mmol/L (3.5-5.1); Sodium 142 mmol/L (136-145); Total Protein 7.6 g/dL (6.4-8.2); Triglycerides 118 mg/dL (<=150); VLDL CHOLESTEROL 23.6 mg/dL
[2025-01-08 13:16] LABS: Glucose Urine UA NEGATIVE (NEGATIVE)
[2025-01-08 13:30] LABS: Cast Seen? NONE SEEN #/LPF (NONE SEEN); Crystals Seen? None Seen #/HPF (None Seen)
== END 2025-01-08 10:42 | disposition home or self-care (01) ==
LOC: US 10:43
PROVIDERS: PCP Nurse Practitioner; Visit Provider Nurse Practitioner
DX: Z00.00 Encounter for general adult medical examination without abnormal findings (principal); I65.29 Occlusion and stenosis of unspecified carotid artery; I10 Essential (primary) hypertension; E78.2 Mixed hyperlipidemia; F17.200 Nicotine dependence, unspecified, uncomplicated; Z12.5 Encounter for screening for malignant neoplasm of prostate
CPT/HCPCS: 36415; 80053; 80061; 81001; 82043; 82570; 85025; 93880; G0103